=== PATIENT | female | born 1950 | race Caucasian/White ===

== ENCOUNTER 2025-01-30 14:07 | Inpatient (IN) | payer MEDICARE, OTHER ==
[~2025-01-30] VITALS: Ht 161.3 cm; Wt 80.0 kg
[2025-01-30 14:10] VITALS: PULSE 110; RESP 24; O2SAT 95
--- NOTE | 2025-01-30 14:18 | ED.PDOC ---
History of Present Illness HPI Comments This is a 75 year old female EUGENIEA presenting to the ED with chief complaint of generalized weakness. EMS reports patient has been being treated for a UTI for approximately a week before today she started to experience generalized weakness and fatigue. EMS relays that the patient's BP was initially in the 70s systolically before dropping to 50/32, giving 1.5L of NS IV and 0.3 of Epinephrine to improve her blood pressure. Patient states she has also been experiencing associated diarrhea for the past week. Patient believes she is allergic to the antibiotic she was prescribed for her UTI. Patient denies any nausea, vomiting, chest pain, SOB, dizziness, or syncope. Time Seen by MD: 14:12 Reviewed Notes: Nurses Notes, Waste Duster Notes, Medications, Allergies Allergies: Coded Allergies: Amlodipine (Verified Allergy, Unknown, 01/30/25) Doxycycline (Verified Allergy, Unknown, 01/30/25) Hydralazine (Verified Allergy, Unknown, 01/30/25) Lisinopril (Verified Allergy, Unknown, 01/30/25) Nebivolol (Verified Allergy, Unknown, 01/30/25) Information Source: Patient, Emergency Med Personnel Mode of Arrival: EMS Severity: Moderate Timing: Days Duration: Since onset Prehospital treatment: None Past Medical History PAST MEDICAL HISTORY: HTN, Thyroid, UTI'S Past Medical History (Other): Prediabetes, kidney issues Surgical History: Appendectomy, Cholecystectomy, Tonsillectomy Surgical History (Other): Cataract surgery, Bilateral knee replacement INVESTMENT BANKING ANALYST History: Denies all INVESTMENT BANKING ANALYST Hx Family History Family History: Reviewed,noncontributory to illness Social History Smoker: Non-Smoker Alcohol: Denies ETOH Use Drugs: Denies Drug Use Lives In: Home Constitutional: reports: weakness; denies: chills, diaphoresis, fatigue, fever, malaise, sweats, others EENTM: denies: blurred vision, double vision, ear bleeding, ear discharge, ear drainage, ear pain, ear ringing, eye pain, eye redness, hearing loss, mouth pain, mouth swelling, nasal discharge, nose bleeding, nose congestion, nose pain, photophobia, tearing, throat pain, throat swelling, voice changes, others Respiratory: denies: cough, hemoptysis, orthopnea, SOB at rest, shortness of breath, SOB with excertion, stridor, wheezing, others Cardiovascular: denies: chest pain, dizzy spells, diaphoresis, Dyspnea on exertion, edema, irregular heart beat, left arm pain, lightheadedness, palpitations, PND, syncope, others Gastrointestinal: denies: abdomen distended, abdominal pain, blood streaked bowels, constipated, diarrhea, dysphagia, difficulty swallowing, hematemesis, melena, nausea, poor appetite, poor fluid intake, rectal bleeding, rectal pain, vomiting, others Genitourinary: denies: abnormal vagina bleeding, burning, dyspareunia, dysuria, flank pain, frequency, hematuria, incontinence, pain, , vagina discharge, urgency, others Neurological: denies: dizziness, fainting, headache, left sided numbness, left sided weakness, numbness, paresthesia, pre-existing deficit, right sided numbness, right sided weakness, seizure, speech problems, tingling, tremors, weakness, others Musculoskeletal: denies: back pain, gout, joint pain, joint swelling, muscle pain, muscle stiffness, neck pain, others Integumetry: denies: bruises, change in color, change in hair/nails, dryness, laceration, lesions, lumps, rash, wounds, others Allergic/Immunocompromised: denies: Difficulty Healing, Frequent Infections, Hives, Itching, others Hematologic/Lymphatic: denies: anemia, blood clots, easy bleeding, easy bruising, swollen glands, others Endocrine: denies: excessive hunger, excessive sweating, excessive thirst, excessive urination, flushing, intolerance to cold, intolerance to heat, unexplained weight gain, unexplained weight loss, others Psychiatric: denies: anxiety, bipolar disorder, depression, hopeless, panic disorder, schizophrenia, sleepless, suicidal, others All Other Systems: Reviewed and Negative Physical Exam General Appearance: Moderate Distress HEENT: Pale Conjuntivae (L), Pale Conjuntivae (R), Pharynx Normal, TMs Normal Neck: Full Range of Motion, Non-Tender, Normal, Normal Inspection Respiratory: Chest Non-Tender, Lungs Clear, No Accessory Muscle Use, No Respiratory Distress, Normal Breath Sounds Cardiovascular: No Edema, No JVD, No Murmur, No Gallop, Normal Peripheral Pulses, Regular Rate/Rhythm Breast Exam: Deferred Gastrointestinal: No Organomegaly, Non Tender, No Pulsatile Mass, Normal Bowel Sounds, Soft Genitalia: Deferred Pelvic: Deferred Rectal: Deferred Extremities: No calf tenderness, Normal capillary refill, No pedal edema Musculoskeletal : Apperance: Normal Neurologic: skill training program coordinator II-XII nml as Tested, Motor Weakness, Normal Affect, Normal Mood, No Sensory Deficits Cerebellar Function: Normal Reflexes: Normal Skin: Dry, Pallor, Warm Lymphatic: No Adenopathy Was a procedure done? Was a procedure done?: No EKG EKG : Pulse Rate (adult): 105 [place]: Normal Cardiac Rhythm: ST Block: None Hypertrophy: None ST: Normal Differential Dx Considerations may include: Sepsis, UTI, generalized weakness, electrolyte imbalance X-Ray, Labs, Meds, VS Vital Signs Date Time Temp Pulse Resp B/P (MAP) Pulse Ox O2 Delivery O2 Flow Rate FiO2 01/30/25 15:16 98 24 105/66 (79) 95 01/30/25 14:36 97.7 110 24 81/51 95 97.7 01/30/25 14:18 105 01/30/25 14:11 105 01/30/25 14:10 97.7 110 24 81/51 (61) 95 97.7 01/30/25 14:10 110 24 95 Nasal Cannula* 2 28 Lab Test 01/30/25 16:35 01/30/25 14:38 Range/Units Lactic Acid Level 1.2 2.4 *H 0.4-2.0 mmol/L White Blood Count 11.5 H 4.4-10.8 10^3/uL Red Blood Count 3.75 L 4.0-5.20 10^6/uL Hemoglobin 12.2 12.2-16.2 g/dL Hematocrit 37.5 36.0-46.0 % Mean Corpuscular Volume 100.1 H 80.0-100.0 fL Mean Corpuscular Hemoglobin 32.6 H 28.0-32.0 pg Mean Corpuscular Hemoglobin Concent 32.5 32.0-36.0 g/dL Red Cell Distribution Width 16.2 H 11.8-14.3 % Platelet Count 145 140-450 10^3/uL Mean Platelet Volume 8.9 6.9-10.8 fL Neutrophils (%) (Auto) 85.5 H 37.0-80.0 % Lymphocytes (%) (Auto) 5.2 L 10.0-50.0 % Monocytes (%) (Auto) 8.4 0.0-12.0 % Eosinophils (%) (Auto) 0.4 0.0-7.0 % Basophils (%) (Auto) 0.5 0.0-2.0 % Neutrophils # (Auto) 9.8 H 1.6-8.6 10 ^3/uL Lymphocytes # (Auto) 0.6 0.4-5.4 10 ^3/uL Monocytes # (Auto) 1.0 0-1.3 10 ^3/uL Eosinophils # (Auto) 0 0-0.8 10 ^3/uL Basophils # (Auto) 0.1 0-0.2 10 ^3/uL Nucleated Red Blood Cells 0.0 % Sodium Level 140 136-145 mmol/L Potassium Level 4.4 3.5-5.1 mmol/L Chloride Level 109 H 98-107 mmol/L Carbon Dioxide Level 18 L 20-31 mmol/L Anion Gap 13 5-15 Blood Urea Nitrogen 25 H 9-23 mg/dL Creatinine 1.99 H 0.550-1.02 mg/dL Glomerular Filtration Rate Calc 25 >90 mL/min BUN/Creatinine Ratio 12.6 10.0-20.0 Serum Glucose 138 H 74-106 mg/dL Calcium Level 9.0 8.7-10.4 mg/dL Current Medications Medications (Trade) Dose Ordered Sig/David Route Start Time Stop Time Status Last Admin Sodium Chloride 1,000 ml @ 150 mls/hr Q6H40M ONCE IV 01/30/25 14:15 01/30/25 17:49 DC 01/30/25 14:59 Vancomycin HCl 250 ml @ 250 mls/hr ONCE ONCE IV 01/30/25 14:15 01/30/25 15:14 DC 01/30/25 16:00 Levofloxacin/ Dextrose 100 ml @ 100 mls/hr ONCE ONCE IV 01/30/25 14:15 01/30/25 15:14 DC 01/30/25 14:59 Sodium Chloride 1,000 ml @ 100 mls/hr Q10H ONCE IV 01/30/25 17:30 01/31/25 03:29 01/30/25 17:49 Ondansetron HCl (Zofran) 4 mg Q4HP PRN IV 01/30/25 17:30 01/30/25 18:54 Chest XR indicates: No acute cardiopulmonary disease. IV Hep-Lock was established The patient had an IV Hep-Lock established and was then given normal saline per sepsis protocol Following blood cultures, the patient was given vancomycin and Levaquin IV piggyback For the nausea, the patient was given Zofran 4 mg IV push The BUN is 25 and the creatinine is 1.99 The patient's lactic acid level initially was 2.4 and eventually went down at 1.2 The CBC shows an elevated white blood cell count of 11.5 The rest of the CBC is within normal limits For findings are consistent with sepsis. The patient is undergoing sepsis protocol. The patient will be admitted to the ICU. Images Reviewed?: Images reviewed and evaluated by me Time of 1ST Reevaluation: 19:04 Reevaluation 1ST: Unchanged Patient Education/Counseling: Diagnosis, Treatment, Prognosis Family Education/Counseling: No Family Present SEPSIS Sepsis Screen Physician Orders Chest Portable (01/30/25 14:11) Urinalysis (01/30/25 14:11) Heplock Iv (01/30/25 14:11) Solid Waste Facility Operator (01/30/25 14:11) Blood Pressure (01/30/25 14:11) Pulse Oximetry (01/30/25 14:11) Electrocardigram (01/30/25 14:11) Blood Culture (01/30/25 14:11) Norepinephrine 8 Mg/250ml Kit (Levophed) (01/30/25 15:00) Vital Signs Date Time Temp Pulse Resp B/P (MAP) Pulse Ox O2 Delivery O2 Flow Rate FiO2 01/30/25 15:16 98 24 105/66 (79) 95 01/30/25 14:36 97.7 110 24 81/51 95 97.7 01/30/25 14:18 105 01/30/25 14:11 105 01/30/25 14:10 97.7 110 24 81/51 (61) 95 97.7 01/30/25 14:10 110 24 95 Nasal Cannula* 2 28 Laboratory Tests Test 01/30/25 14:38 01/30/25 16:35 Lactic Acid Level 2.4 mmol/L (0.4-2.0) *H 1.2 mmol/L (0.4-2.0) White Blood Count 11.5 10^3/uL (4.4-10.8) H Medications Medications Dose Ordered Sig/David Route Start Time Stop Time Status Last Admin Dose Admin Levofloxacin/ Dextrose 100 ml @ 100 mls/hr ONCE ONCE IV 01/30/25 14:15 01/30/25 15:14 DC 01/30/25 14:59 Ondansetron HCl 4 mg Q4HP PRN IV 01/30/25 17:30 01/30/25 18:54 Sodium Chloride 1,000 ml @ 100 mls/hr Q10H ONCE IV 01/30/25 17:30 01/31/25 03:29 01/30/25 17:49 Sodium Chloride 1,000 ml @ 150 mls/hr Q6H40M ONCE IV 01/30/25 14:15 01/30/25 17:49 DC 01/30/25 14:59 Vancomycin HCl 250 ml @ 250 mls/hr ONCE ONCE IV 01/30/25 14:15 01/30/25 15:14 DC 01/30/25 16:00 Departure 1 Departure Time of Disposition: 19:06 Impression: Primary Impression: Sepsis secondary to UTI Additional Impression: Hypotension Qualified Codes: I95.9 - Hypotension, unspecified Disposition: ADMITTED INPATIENT Admit to: ICU Condition: Critical Discharged With: Self Critical Care Note Critical Care Time?: Yes (45 min-critical care time only) Stability Stability form required: Yes Unstable for transfer: ICU, CCU, PCU, EDA (Intensive VS monitoring), ED Physician Assesment (Clinical assesment) Heart Score Heart Score: Heart Score Response (Comments) Value History N/A 0 EKG N/A 0 Age N/A 0 Risk Factors N/A 0 Troponin N/A 0 Total 0 I personally scribed for HOMER CHACON MD ([email or web address]) on 01/30/25 at 14:18. Electronically submitted by Salinas Grey ([email or web address]). I personally scribed for HOMER CHACON MD ([email or web address]) on 01/30/25 at 14:47. Electronically submitted by Salinas Grey ([email or web address]). HOMER CHACON MD Jan 30, 2025 14:18
--- NOTE | 2025-01-30 14:41 | DVH ---
EXAM: XY CHEST PORTABLE Indication: weakness Technique: Single frontal view of the chest was obtained Comparison: None FINDINGS: Lines and Tubes: None Lungs: No focal consolidation. Pleura: No effusion. No pneumothorax. Cardiomediastinal contours: Unremarkable Bones: No acute osseous abnormality. IMPRESSION: No acute cardiopulmonary disease.
[2025-01-30 14:59] LABS: Hematocrit 37.5 % (36.0-46.0); Hemoglobin 12.2 g/dL (12.2-16.2); Mean Corpuscular Hemoglobin 32.6 pg (28.0-32.0); Mean Corpuscular Volume 100.1 fL (80.0-100.0); Nucleated Red Blood Cells % 0.0 %
[2025-01-30] MEDS: SODIUM CHLORIDE 0.9% 1,000 ML IV ONE ×2 (14:59→17:49)
[2025-01-30 15:15] LABS: Potassium 4.4 mmol/L (3.5-5.1); Sodium 140 mmol/L (136-145)
[2025-01-30 15:16] LABS: Anion Gap 13 (5-15); Calcium 9.0 mg/dL (8.7-10.4)
[2025-01-30 15:20] LABS: Carbon Dioxide 18 mmol/L (20-31); Chloride 109 mmol/L (98-107)
[2025-01-30 15:21] LABS: BUN/Creatinine Ratio 12.6 (10.0-20.0)
[2025-01-30 15:26] LABS: Blood Urea Nitrogen 25 mg/dL (9-23); Glucose 138 mg/dL (74-106)
[2025-01-30 15:35] LABS: Lactic Acid w/Reflex 2.4 mmol/L (0.4-2.0)
[2025-01-30] MEDS: NOREPINEPHRINE 8 MG/250ML KIT 250 ML IV SCH (15:54)
[2025-01-30] MEDS: VANCOMYCIN 1GM/250ML KIT 250 ML IV ONE (16:00)
[2025-01-30] MEDS ORDERED: NITROGLYCERIN 0.4 MG SL TAB SL PRN (17:30)
[2025-01-30] MEDS ORDERED: ACETAMINOPHEN 325 MG TAB PO PRN (17:30)
[2025-01-30] MEDS ORDERED: VANCOMYCIN PER PHARMACY 0 MG IV SCH (17:30)
[2025-01-30] MEDS ORDERED: MORPHINE SULFATE 4 MG/ML SYR/VIAL IV PRN (18:00)
[2025-01-30] MEDS: VANCOMYCIN 1.25GM/250ML 250 ML IV ONE (18:26)
[2025-01-30] MEDS: ONDANSETRON HCL 4 MG/2 ML VIAL IV PRN (18:54)
--- NOTE | 2025-01-30 19:29 | DVHHP2 ---
History of Present Illness Reason for Visit: Generalized weakness History of Present Illness 75-year-old female presented for evaluation of generalized weakness. Patient reports being treated for a urinary tract infection for the past one month. Reports noticing cloudy urine. Denies dysuria or hematuria. Her blood pressure was in the 70s on arrival to the emergency department. Currently denies chest pain or shortness for breath. No other acute complaints. Past Medical History Thyroid, hypertension, UTI Past Surgical History Cholecystectomy, tonsillectomy, appendectomy, knee replacement Family History Noncontributory Smoke: No ALCOHOL: none Drugs: None Lives: with Family Review of Systems Review of Systems Review of systems are currently negative otherwise addressed in HPI. Allergies: Coded Allergies: Amlodipine (Verified Allergy, Unknown, 01/30/25) Doxycycline (Verified Allergy, Unknown, 01/30/25) Hydralazine (Verified Allergy, Unknown, 01/30/25) Lisinopril (Verified Allergy, Unknown, 01/30/25) Nebivolol (Verified Allergy, Unknown, 01/30/25) Medications Current Medications Medications Dose Ordered Sig/David Route Start Time Stop Time Status Last Admin Dose Admin Norepinephrine Bitartrate 250 ml @ 3.75 mls/hr Q24H IV 01/30/25 15:00 Piperacillin Sod/ Tazobactam Sod 100 ml @ 25 mls/hr Q8HR IV 01/30/25 22:00 Vancomycin HCl 0 ml @ 0 mls/hr UD IV 01/30/25 17:30 Pantoprazole Sodium 40 mg DAILY IV 01/31/25 10:00 Ondansetron HCl 4 mg Q4HP PRN IV 01/30/25 17:30 01/30/25 18:54 4 MG Acetaminophen 650 mg Q6HP PRN PO 01/30/25 17:30 Nitroglycerin 0.4 mg Q5MINP PRN SL 01/30/25 17:30 Morphine Sulfate 2 mg Q30M PRN IV 01/30/25 18:00 Exam Vital Signs Vital Signs Date Time Temp Pulse Resp B/P (MAP) Pulse Ox O2 Delivery O2 Flow Rate FiO2 01/30/25 15:16 98 24 105/66 (79) 95 01/30/25 14:36 97.7 97.7 01/30/25 14:10 Nasal Cannula* 2 28 Exam Gen: 75-year-old female in mild distress Skin: Warm, dry, normal color and texture, no rash. HEENT: Normocephalic atraumatic, mucous membranes moist and pink. Neck: Cervical and supraclavicular nodes normal without enlargement, trachea is midline, thyroid gland is normal without masses. Pulmonary: Clear to auscultation and percussion bilaterally. Cardiac: Regular rate and rhythm. No murmur Abdomen: Soft, nontender, nondistended, bowel sounds present all 4 quadrants, no guarding, no rigidity, no organomegaly. Extremities: No cyanosis, clubbing, no edema Neuro: Cranial nerves II through XII grossly intact, normal affect and speech, no focal motor deficits. Labs/Xrays ORDERING PHYSICIAN: HOMER CHACON MD PROCEDURE(s): CXRP - CHEST PORTABLE REASON: weakness ORDER NUMBER(s): [id number], ACCESSION NUMBER(s): [id number] EXAM: XY CHEST PORTABLE Indication: weakness Technique: Single frontal view of the chest was obtained Comparison: None FINDINGS: Lines and Tubes: None Lungs: No focal consolidation. Pleura: No effusion. No pneumothorax. Cardiomediastinal contours: Unremarkable Bones: No acute osseous abnormality. IMPRESSION: No acute cardiopulmonary disease. ATED BY: RUBIN BELTRAN MD DICTATED DATE/TIME: 01/30/25 1438 Labs Test 01/30/25 16:35 01/30/25 14:38 Range/Units Lactic Acid Level 1.2 0.4-2.0 mmol/L White Blood Count 11.5 H 4.4-10.8 10^3/uL Red Blood Count 3.75 L 4.0-5.20 10^6/uL Hemoglobin 12.2 12.2-16.2 g/dL Hematocrit 37.5 36.0-46.0 % Mean Corpuscular Volume 100.1 H 80.0-100.0 fL Mean Corpuscular Hemoglobin 32.6 H 28.0-32.0 pg Mean Corpuscular Hemoglobin Concent 32.5 32.0-36.0 g/dL Red Cell Distribution Width 16.2 H 11.8-14.3 % Platelet Count 145 140-450 10^3/uL Mean Platelet Volume 8.9 6.9-10.8 fL Neutrophils (%) (Auto) 85.5 H 37.0-80.0 % Lymphocytes (%) (Auto) 5.2 L 10.0-50.0 % Monocytes (%) (Auto) 8.4 0.0-12.0 % Eosinophils (%) (Auto) 0.4 0.0-7.0 % Basophils (%) (Auto) 0.5 0.0-2.0 % Neutrophils # (Auto) 9.8 H 1.6-8.6 10 ^3/uL Lymphocytes # (Auto) 0.6 0.4-5.4 10 ^3/uL Monocytes # (Auto) 1.0 0-1.3 10 ^3/uL Eosinophils # (Auto) 0 0-0.8 10 ^3/uL Basophils # (Auto) 0.1 0-0.2 10 ^3/uL Nucleated Red Blood Cells 0.0 % Sodium Level 140 136-145 mmol/L Potassium Level 4.4 3.5-5.1 mmol/L Chloride Level 109 H 98-107 mmol/L Carbon Dioxide Level 18 L 20-31 mmol/L Anion Gap 13 5-15 Blood Urea Nitrogen 25 H 9-23 mg/dL Creatinine 1.99 H 0.550-1.02 mg/dL Glomerular Filtration Rate Calc 25 >90 mL/min BUN/Creatinine Ratio 12.6 10.0-20.0 Serum Glucose 138 H 74-106 mg/dL Calcium Level 9.0 8.7-10.4 mg/dL SEPSIS Sepsis Screen Date sepsis recognized/suspect: Jan 30, 2025 Time Sepsis recognized/suspect: 1441 Recent Procedure: No On Antibiotic Therapy: No Respiratory Rate >20: No Heart Rate >90: No Temp<36 C (96.8 F) or >38.3 C: No SBP <90 or MAP <65 mmHG: No New Acute Mental Status Change: No Is the patient on CPAP, BIPAP,: No Physician Orders Chest Portable (01/30/25 14:11) Urinalysis (01/30/25 14:11) Heplock Iv (01/30/25 14:11) Program Production Specialist (01/30/25 14:11) Blood Pressure (01/30/25 14:11) Pulse Oximetry (01/30/25 14:11) Electrocardigram (01/30/25 14:11) Blood Culture (01/30/25 14:11) Norepinephrine 8 Mg/250ml Kit (Levophed) (01/30/25 15:00) Piperacillin-Tazob 3.375gm (Zosyn 3.375g (01/30/25 22:00) Vancomycin Per Pharmacy (01/30/25 17:30) Sodium Chloride 0.9% (01/30/25 17:30) Pantoprazole (Protonix) (01/31/25 10:00) Admit (01/30/25 17:30) Ondansetron Hcl (Zofran) (01/30/25 17:30) Complete Blood Count (01/31/25 04:00) Comprehensive Metabolic Panel (01/31/25 04:00) Cardiac Diet-2gna,Lofat,Lochol (01/30/25 Dinner) Echo 2d Mode Cardiac Dop (01/30/25 17:30) Condition: Unstable (01/30/25 17:30) Acetaminophen Tablet (Tylenol Tablet) (01/30/25 17:30) Bedrest With Bathroom Privileg (01/30/25 17:30) Nitroglycerin Sublingual (Ntrostat Subli (01/30/25 17:30) Stat Ekg For Chest Pain (01/30/25 17:30) Notify Md Of Changes From Base (01/30/25 17:30) Fermentation Operator For 24 Hours (01/30/25 17:30) Emergency Dysrhythmia Protocol (01/30/25 17:30) Rhythm Strips Once Every Shift (01/30/25 17:30) Oxygen By Nasal Cannula (01/30/25 17:30) Morphine Sulfate Injection (01/30/25 18:00) Vancomycin,Random (01/31/25 04:00) Admit (01/30/25 19:20) Transfer Orders (01/30/25 19:20) Vital Signs Date Time Temp Pulse Resp B/P (MAP) Pulse Ox O2 Delivery O2 Flow Rate FiO2 01/30/25 15:16 98 24 105/66 (79) 95 01/30/25 14:36 97.7 110 24 81/51 95 97.7 01/30/25 14:18 105 01/30/25 14:11 105 01/30/25 14:10 97.7 110 24 81/51 (61) 95 97.7 01/30/25 14:10 110 24 95 Nasal Cannula* 2 28 Laboratory Tests Test 01/30/25 14:38 01/30/25 16:35 Lactic Acid Level 2.4 mmol/L (0.4-2.0) *H 1.2 mmol/L (0.4-2.0) White Blood Count 11.5 10^3/uL (4.4-10.8) H Medications Medications Dose Ordered Sig/David Route Start Time Stop Time Status Last Admin Dose Admin Levofloxacin/ Dextrose 100 ml @ 100 mls/hr ONCE ONCE IV 01/30/25 14:15 01/30/25 15:14 DC 01/30/25 14:59 100 MLS/HR Ondansetron HCl 4 mg Q4HP PRN IV 01/30/25 17:30 01/30/25 18:54 4 MG Sodium Chloride 1,000 ml @ 100 mls/hr Q10H ONCE IV 01/30/25 17:30 01/31/25 03:29 01/30/25 17:49 100 MLS/HR Sodium Chloride 1,000 ml @ 150 mls/hr Q6H40M ONCE IV 01/30/25 14:15 01/30/25 17:49 DC 01/30/25 14:59 150 MLS/HR Vancomycin HCl 250 ml @ 250 mls/hr ONCE ONCE IV 01/30/25 14:15 01/30/25 15:14 DC 01/30/25 16:00 250 MLS/HR Assessment/Plan Assessment/Plan Assessment Sepsis Possible urinary tract infection Hypotension Plan Admit the patient to telemetry to the hospitalist Abdullahi Maintenance IV fluids Urine bacterial culture pending UA pending Continue treatment per orders. Plan discussed with: Patient My Orders Orders - CHARI WOLF AGACNP Procedure Category Date Status Time Piperacillin-Tazob PHA 01/30/25 In Process 3.375gm (Zosyn 3.375g 22:00 Vancomycin Per PHA 01/30/25 In Process Pharmacy 17:30 Sodium Chloride 0.9% PHA 01/30/25 In Process 17:30 Pantoprazole PHA 01/31/25 In Process (Protonix) 10:00 Admit ADMIT 01/30/25 Transmitted 17:30 Ondansetron Hcl PHA 01/30/25 In Process (Zofran) 17:30 Complete Blood Count LAB 01/31/25 Verified 04:00 Comprehensive LAB 01/31/25 Verified Metabolic Panel 04:00 Cardiac DIET 01/30/25 Transmitted Diet-2gna,Lofat,Lochol Dinner Echo 2d Mode Cardiac US 01/30/25 Logged DOP 17:30 Condition: Unstable MELONIE 01/30/25 In Process 17:30 Acetaminophen Tablet PHA 01/30/25 In Process (Tylenol Tablet) 17:30 Bedrest With Bathroom MELONIE 01/30/25 In Process Privileg 17:30 Nitroglycerin PHA 01/30/25 In Process Sublingual (Ntrostat 17:30 Stat Ekg For Chest MELONIE 01/30/25 In Process Pain 17:30 Notify Of Changes [facility] 01/30/25 In Process From Base 17:30 Fermentation Operator For [facility] 01/30/25 In Process 24 Hours 17:30 Emergency Dysrhythmia [facility] 01/30/25 In Process Protocol 17:30 Rhythm Strips Once [facility] 01/30/25 In Process Every Shift 17:30 Oxygen By Nasal RT 01/30/25 Transmitted Cannula 17:30 Morphine Sulfate PHA 01/30/25 In Process Injection 18:00 Vancomycin,Random LAB 01/31/25 Verified 04:00 Admit ADMIT 01/30/25 Transmitted 19:20 Transfer Orders XFER 01/30/25 Transmitted 19:20 Date of Service: Jan 30, 2025 Billing Provider: CHARI WOLF Common Visit Codes: [id number] INP/OBS CARE (HIGH) CHARI WOLF Jan 30, 2025 19:29
[2025-01-30 19:30] VITALS: PULSE 83; RESP 19; O2SAT 96
[2025-01-30] MEDS: HYDROcodone-ACET 5/325MG TAB PO PRN (21:39)
[2025-01-30] MEDS ORDERED: PIPERACILLIN-TAZOB 3.375GM 100 ML IV SCH (22:00)
[2025-01-31] VITALS (9 sets, daily range): BP systolic 111–140; BP diastolic 74–88; PULSE 74–91; RESP 16–19; TEMP 97.2–98.3; O2SAT 90–95
[2025-01-31] MEDS ORDERED: LEVO125T7 PO (03:47)
[2025-01-31] MEDS ORDERED: OMEP20TA PO (03:47)
[2025-01-31] MEDS ORDERED: TIZA4CAP PO (03:47)
[2025-01-31] MEDS ORDERED: NEBI5TAB10 PO (03:47)
[2025-01-31] MEDS ORDERED: HYDR-4798 PO (03:47)
[2025-01-31 06:51] LABS: Hematocrit 39.7 % (36.0-46.0); Hemoglobin 12.7 g/dL (12.2-16.2); Mean Corpuscular Hemoglobin 32.8 pg (28.0-32.0); Mean Corpuscular Volume 102.2 fL (80.0-100.0); Nucleated Red Blood Cells % 0.1 %
[2025-01-31 07:07] LABS: Alanine Aminotransferase 15 U/L (7-40); Albumin 3.2 g/dL (3.2-4.8); Alkaline Phosphatase 97 U/L (46-116); Anion Gap 15 (5-15); BUN/Creatinine Ratio 16.3 (10.0-20.0); Calcium 9.6 mg/dL (8.7-10.4); Glucose 92 mg/dL (74-106); Potassium 4.8 mmol/L (3.5-5.1); Sodium 139 mmol/L (136-145); Total Protein 6.3 g/dL (5.7-8.2)
[2025-01-31 07:14] LABS: Bilirubin, Total 1.2 mg/dL (0.2-1.0); Blood Urea Nitrogen 34 mg/dL (9-23); Carbon Dioxide 16 mmol/L (20-31); Chloride 108 mmol/L (98-107)
--- NOTE | 2025-01-31 07:57 | ECG ---
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
[2025-01-31] MEDS: PANTOPRAZOLE 40 MG/10 ML VIAL INJ IV SCH (11:21)
--- NOTE | 2025-01-31 12:55 | DVHPN2 ---
Reviewed: Care Plan, H&P, Labs, Medications, Previous Orders, Radiology Changes from previous H/P or p: No Changes Objective Vitals Vital Signs Date Time Temp Pulse Resp B/P (MAP) Pulse Ox O2 Delivery O2 Flow Rate FiO2 01/31/25 09:00 98.3 74 16 118/77 (91) 93 98.3 01/31/25 08:00 Nasal Cannula* 2 28 Intake/Output Intake and Output 01/31/25 06:59 Intake Total 0 ml Balance 0 ml Intake Oral 0 ml Medications Current Medications Medications Dose Ordered Sig/David Route Start Time Stop Time Status Last Admin Dose Admin Pantoprazole Sodium 40 mg DAILY IV 01/31/25 10:00 01/31/25 11:21 40 MG Ondansetron HCl 4 mg Q4HP PRN IV 01/30/25 17:30 01/30/25 18:54 4 MG Acetaminophen 650 mg Q6HP PRN PO 01/30/25 17:30 Nitroglycerin 0.4 mg Q5MINP PRN SL 01/30/25 17:30 Morphine Sulfate 2 mg Q30M PRN IV 01/30/25 18:00 Acetaminophen/ Hydrocodone Bitart 1 tab Q8HPRN PRN PO 01/30/25 20:45 01/31/25 05:47 1 TAB Levofloxacin 50 ml @ 50 mls/hr DAILY IV 01/31/25 10:00 01/31/25 11:21 50 MLS/HR Laboratory Results Laboratory Tests 01/31/25 05:39 Chemistry Test 01/30/25 14:38 01/31/25 05:39 Calcium Level 9.0 mg/dL (8.7-10.4) 9.6 mg/dL (8.7-10.4) Albumin 3.2 g/dL (3.2-4.8) Total Protein 6.3 g/dL (5.7-8.2) LFT Test 01/31/25 05:39 Alanine Aminotransferase (ALT) 15 U/L (7-40) Alkaline Phosphatase 97 U/L (46-116) Aspartate Amino Transferase (AST) 27 U/L (13-40) Total Bilirubin 1.2 mg/dL (0.2-1.0) H Labs and/or images reviewed: Labs reviewed by me, Image(s) reviewed by me Assessment/Plan Assessment/Plan Septic shock with hypotension altered mental status elevated white count secondary to urinary tract infection Acute urinary tract infection: Blood cultures urine cultures Rocephin Hypotension secondary to septic shock: IV fluids Hypertension: Hold blood pressure medication as the patient now has sepsis Hypothyroidism History of recurrent urinary tract infections Moderate malnutrition History of cholecystectomy appendectomy hysterectomy colectomy for colon cancer gastric ulcer surgery Vaginal prolapse under the treatment of rn clinical resource Time spent 70 minutes Advanced care planning time 20 minutes Patient is full code Daughter Hi [phone] at bedside Recently treated at [place] for sepsis to urinary tract infection discharged home on cefdinir and Keflex Time spent 70 minutes Advanced care planning time 20 minutes Patient is full code Plan discussed with: Patient My Orders Orders - SUHAIL CARLIN MD Procedure Category Date Status Time Urinalysis LAB 01/31/25 Transmitted 12:35 Communication Order ORDERS 01/31/25 Transmitted 12:36 Date of Service: Jan 31, 2025 Billing Provider: SUHAIL CARLIN MD Common Visit Codes: [id number] CARE 30-74 MIN SUHAIL CARLIN MD Jan 31, 2025 12:55
[2025-01-31] MEDS: D5W/SOD CHLO 0.9% 1,000 ML IV SCH (14:35)
[2025-01-31 19:10] LABS: Urine Protein, UAD Negative (Negative)
[2025-01-31] MEDS: HYDROcodone-ACET 10/325MG TAB PO PRN (21:59)
[2025-02-01] VITALS (8 sets, daily range): BP systolic 100–153; BP diastolic 64–89; PULSE 71–86; RESP 18–20; TEMP 97.4–98.4; O2SAT 94–96
--- NOTE | 2025-02-01 00:25 | DVHSR ---
APPROVED REPORT EXAM: Two-dimensional and M-mode echocardiogram with Doppler, color Doppler and Bubble Study. Blood Pressure: 111/76 mmHg INDICATION EF RISK FACTORS Height: 5'3", Weight: 151 DIMENSIONS LVDd4.2 (3.8-5.7cm)LA (2D)2.9 (1.9-4.0cm)Aortic Root3.4 (2.0-3.7cm) LVDs2.6 (2.5-4.0cm)LA (MM) (1.9-4.0cm)Aortic Cusp Exc1.9 (1.5-2.0cm) EF (%) 69.0 (55-70%)Rt. Atrium4.1 (1.9-4.0cm)Asc. Aorta3.1 cm IVSd0.9 (0.7-1.1cm)RV (D)5.2 (1.8-2.4cm) PWd0.4 (0.7-1.1cm) Mitral Valve MitralMitral Stenosis E wave0.29m/sMV Mean GR.mmHg A wave0.62m/sMV Peak GR.mmHg E/A ratio0.52D MVAcm2 DECEL [id number] 1/2 [place] Aortic Valve Aortic ValveAortic Stenosis V11.11m/Selene Mean GR.4mmHg V21.32m/Selene Peak GR.7mmHg LVOT Diameter2.2 (1.8-2.4cm)Doppler AVA3.19cm2 Pulmonic Valve V20.62m/s Tricuspid Valve TR Velocity2.25m/s [id number] ATRIA Injection of contrast documented an interatrial shunt. Conclusion RV AND RA DILATED HYPOKINETIC RV LV EF IS 65% NORMAL VALVES NO EFFUSION
--- NOTE | 2025-02-01 10:26 | DVHPN2 ---
Reviewed: Care Plan, H&P, Labs, Medications, Previous Orders, Radiology Changes from previous H/P or p: No Changes Objective Vitals Vital Signs Date Time Temp Pulse Resp B/P (MAP) Pulse Ox O2 Delivery O2 Flow Rate FiO2 02/01/25 08:55 97.4 71 20 136/89 (105) 96 97.4 01/31/25 20:00 Nasal Cannula* 2 28 Intake/Output Intake and Output 02/01/25 07:00 Intake Total 1420 ml Output Total 925 ml Balance 495 ml Intake Oral 1420 ml Output Urine Total 925 ml # Bowel Movements 1 Medications Current Medications Medications Dose Ordered Sig/David Route Start Time Stop Time Status Last Admin Dose Admin Pantoprazole Sodium 40 mg DAILY IV 01/31/25 10:00 02/01/25 09:15 40 MG Ondansetron HCl 4 mg Q4HP PRN IV 01/30/25 17:30 01/31/25 23:46 4 MG Acetaminophen 650 mg Q6HP PRN PO 01/30/25 17:30 Nitroglycerin 0.4 mg Q5MINP PRN SL 01/30/25 17:30 Morphine Sulfate 2 mg Q30M PRN IV 01/30/25 18:00 Acetaminophen/ Hydrocodone Bitart 1 tab Q8HPRN PRN PO 01/30/25 20:45 01/31/25 13:49 1 TAB Levofloxacin 50 ml @ 50 mls/hr DAILY IV 01/31/25 10:00 02/01/25 09:15 50 MLS/HR Dextrose/Sodium Chloride 1,000 ml @ 125 mls/hr Q8H IV 01/31/25 13:15 01/31/25 21:50 125 MLS/HR Acetaminophen/ Hydrocodone Bitart 1 tab Q6HP PRN PO 01/31/25 21:45 02/01/25 09:24 1 TAB Laboratory Results Laboratory Tests 01/31/25 05:39 Urinalysis Test 01/31/25 18:25 Urine Color Light-yellow (Yellow) Urine Clarity Clear (Clear) Urine pH 5.5 (5.0-9.0) Urine Specific [place] 1.016 (1.001-1.035) Urine Protein Negative (Negative) Urine Ketones Trace (Negative) Urine Blood Negative /uL (Negative) Urine Nitrite Negative (Negative) Urine Bilirubin Negative (Negative) Urine Urobilinogen Normal mg/dL (Negative) Urine Leukocyte Esterase Negative /uL (Negative) Urine RBC None seen /hpf (0 - 4) Urine Microscopic WBC 2 /HPF (0-5) Urine Squamous Epithelial Cells Few /hpf (<5) Urine Bacteria Few /hpf (None Seen) H Urine Glucose Normal mg/dL (Normal) Microbiology Microbiology Date/Time Source Procedure Growth Status 01/30/25 14:38 Blood Blood Culture - Preliminary NO GROWTH AFTER 24 HOURS OF INCUBATION. Resulted Labs and/or images reviewed: Labs reviewed by me, Image(s) reviewed by me Assessment/Plan Assessment/Plan Septic shock with hypotension altered mental status elevated white count secondary to urinary tract infection Acute urinary tract infection: Blood cultures urine cultures Rocephin Hypotension secondary to septic shock: IV fluids Hypertension: Hold blood pressure medication as the patient now has sepsis Hypothyroidism History of recurrent urinary tract infections Moderate malnutrition History of cholecystectomy appendectomy hysterectomy colectomy for colon cancer gastric ulcer surgery Vaginal 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9%) 13:15 Straight Cath Patient ORDERS 01/31/25 Transmitted 13:04 Date of Service: Feb 01, 2025 Billing Provider: SUHAIL CARLIN MD Common Visit Codes: [id number] INP/OBS CARE(HIGH) SUHAIL CARLIN MD Feb 01, 2025 10:26
[2025-02-01] MEDS ORDERED: HYDROcodone-ACET 10/325MG TAB PO SCH (12:00)
[2025-02-01] MEDS: HYDROcodone-ACET 10/325MG TAB PO SCH (16:30)
[2025-02-02] VITALS (7 sets, daily range): BP systolic 94–125; BP diastolic 51–87; PULSE 74–119; RESP 14–18; TEMP 97.9–98.1; O2SAT 90–100
--- NOTE | 2025-02-02 11:35 | DVHPN2 ---
Reviewed: Care Plan, H&P, Labs, Medications, Previous Orders, Radiology Changes from previous H/P or p: No Changes Objective Vitals Vital Signs Date Time Temp Pulse Resp B/P (MAP) Pulse Ox O2 Delivery O2 Flow Rate FiO2 02/02/25 09:30 98.1 100 14 94/55 (68) 93 98.1 02/01/25 20:00 Nasal Cannula* 2 28 Intake/Output Intake and Output 02/02/25 07:00 Intake Total 8566 ml Balance 8566 ml Intake Oral 1015 ml IV Total 7551 ml # Voids 3 # Bowel Movements 2 Medications Current Medications Medications Dose Ordered Sig/David Route Start Time Stop Time Status Last Admin Dose Admin Pantoprazole Sodium 40 mg DAILY IV 01/31/25 10:00 02/02/25 10:14 40 MG Ondansetron HCl 4 mg Q4HP PRN IV 01/30/25 17:30 01/31/25 23:46 4 MG Acetaminophen 650 mg Q6HP PRN PO 01/30/25 17:30 Nitroglycerin 0.4 mg Q5MINP PRN SL 01/30/25 17:30 Morphine Sulfate 2 mg Q30M PRN IV 01/30/25 18:00 Acetaminophen/ Hydrocodone Bitart 1 tab Q8HPRN PRN PO 01/30/25 20:45 02/02/25 03:32 1 TAB Levofloxacin 50 ml @ 50 mls/hr DAILY IV 01/31/25 10:00 02/02/25 10:14 50 MLS/HR Dextrose/Sodium Chloride 1,000 ml @ 125 mls/hr Q8H IV 01/31/25 13:15 02/02/25 05:15 125 MLS/HR Acetaminophen/ Hydrocodone Bitart 1 tab Q6H PO 02/01/25 15:30 02/02/25 10:14 1 TAB Laboratory Results Laboratory Tests 01/31/25 05:39 Urinalysis Test 01/31/25 18:25 Urine Color Light-yellow (Yellow) Urine Clarity Clear (Clear) Urine pH 5.5 (5.0-9.0) Urine Specific [place] 1.016 (1.001-1.035) Urine Protein Negative (Negative) Urine Ketones Trace (Negative) Urine Blood Negative /uL (Negative) Urine Nitrite Negative (Negative) Urine Bilirubin Negative (Negative) Urine Urobilinogen Normal mg/dL (Negative) Urine Leukocyte Esterase Negative /uL (Negative) Urine RBC None seen /hpf (0 - 4) Urine Microscopic WBC 2 /HPF (0-5) Urine Squamous Epithelial Cells Few /hpf (<5) Urine Bacteria Few /hpf (None Seen) H Urine Glucose Normal mg/dL (Normal) Microbiology Microbiology Date/Time Source Procedure Growth Status 01/31/25 18:25 Voided Urine Urine Culture - Preliminary Resulted 01/30/25 14:38 Blood Blood Culture - Preliminary NO GROWTH AFTER 48 HOURS OF INCUBATION. Resulted Labs and/or images reviewed: Labs reviewed by me, Image(s) reviewed by me Assessment/Plan Assessment/Plan Septic shock with hypotension altered mental status elevated white count secondary to urinary tract infection Acute urinary tract infection: Blood cultures negative, urine cultures negative, continue Rocephin Hypotension secondary to septic shock: IV fluids Hypertension: Hold blood pressure medication as the patient now has sepsis Hypothyroidism History of recurrent urinary tract infections Moderate malnutrition History of cholecystectomy appendectomy hysterectomy colectomy for colon cancer gastric ulcer surgery 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 Chronic pain: [place] 10 q.6 hours per patient request Time spent 50 minutes Advanced care planning time 20 minutes Patient is full code Daughter Gayatri [phone] at bedside Recently treated at [place] for sepsis secondary to urinary tract infection discharged home on cefdinir and Keflex Time spent 50 minutes Blood cultures negative Urine cultures pending JOSÉ MIGUEL lau at bedside Plan discussed with: Patient My Orders Orders - SUHAIL CARLIN MD Procedure Category Date Status Time Hydrocodone-Acet PHA 02/01/25 In Process 10/325mg Tab ([place] 15:30 Notify Provider NOTICE 02/02/25 Transmitted Malnutrition 11:13 Nutritional NOURISH 02/02/25 Transmitted Supplements 11:13 Dietary NOTICE 02/02/25 Transmitted Recommendations 11:13 Date of Service: Feb 02, 2025 Billing Provider: SUHAIL CARLIN MD Common Visit Codes: [id number] INP/OBS CARE(HIGH) SUHAIL CARLIN MD Feb 02, 2025 11:35
--- NOTE | 2025-02-02 13:16 | DVH ---
CHEST RADIOGRAPH Indication: Cough, shortness of breath Technique: Single frontal view of the chest was obtained Comparison: XY CHEST PORTABLE on DOS: 01/30/25 FINDINGS: Lines and Tubes: None Lungs: There is Right basilar airspace disease. The left lung is clear. Pleura: No effusion. No pneumothorax. Cardiomediastinal contours: Cardiomegaly. Bones: No acute osseous abnormality. There is a neurostimulator overlying thoracic spine. IMPRESSION: 1. Right basilar airspace disease may represent pneumonia.
[2025-02-02] MEDS: HYDROcodone-ACET 10/325MG TAB PO SCH (23:16)
[2025-02-03] VITALS (19 sets, daily range): BP systolic 83–113; BP diastolic 48–66; PULSE 60–151; RESP 17–20; TEMP 97.5–98.4; O2SAT 90–96
[2025-02-03 09:21] LABS: COVID19 ANTIGEN SOFIA FIA NEGATIVE (NEGATIVE)
--- NOTE | 2025-02-03 10:53 | DVHPN2 ---
Reviewed: Care Plan, H&P, Labs, Medications, Previous Orders, Radiology Changes from previous H/P or p: No Changes Objective Vitals Vital Signs Date Time Temp Pulse Resp B/P (MAP) Pulse Ox O2 Delivery O2 Flow Rate FiO2 02/03/25 09:00 97.9 88 17 113/55 (74) 90 97.9 02/02/25 20:00 Nasal Cannula* 2 28 Intake/Output Intake and Output 02/03/25 07:00 Intake Total 2125 ml Balance 2125 ml Intake Oral 1200 ml IV Total 925 ml # Voids 5 # Bowel Movements 1 Medications Current Medications Medications Dose Ordered Sig/David Route Start Time Stop Time Status Last Admin Dose Admin Pantoprazole Sodium 40 mg DAILY IV 01/31/25 10:00 02/02/25 10:14 40 MG Ondansetron HCl 4 mg Q4HP PRN IV 01/30/25 17:30 01/31/25 23:46 4 MG Acetaminophen 650 mg Q6HP PRN PO 01/30/25 17:30 Nitroglycerin 0.4 mg Q5MINP PRN SL 01/30/25 17:30 Morphine Sulfate 2 mg Q30M PRN IV 01/30/25 18:00 Acetaminophen/ Hydrocodone Bitart 1 tab Q8HPRN PRN PO 01/30/25 20:45 02/02/25 03:32 1 TAB Levofloxacin 50 ml @ 50 mls/hr DAILY IV 01/31/25 10:00 02/02/25 10:14 50 MLS/HR Dextrose/Sodium Chloride 1,000 ml @ 125 mls/hr Q8H IV 01/31/25 13:15 02/03/25 02:06 125 MLS/HR Acetaminophen/ Hydrocodone Bitart 1 tab Q6HR PO 02/03/25 00:00 02/03/25 05:50 1 TAB Laboratory Results Laboratory Tests 01/31/25 05:39 Urinalysis Test 01/31/25 18:25 Urine Color Light-yellow (Yellow) Urine Clarity Clear (Clear) Urine pH 5.5 (5.0-9.0) Urine Specific [place] 1.016 (1.001-1.035) Urine Protein Negative (Negative) Urine Ketones Trace (Negative) Urine Blood Negative /uL (Negative) Urine Nitrite Negative (Negative) Urine Bilirubin Negative (Negative) Urine Urobilinogen Normal mg/dL (Negative) Urine Leukocyte Esterase Negative /uL (Negative) Urine RBC None seen /hpf (0 - 4) Urine Microscopic WBC 2 /HPF (0-5) Urine Squamous Epithelial Cells Few /hpf (<5) Urine Bacteria Few /hpf (None Seen) H Urine Glucose Normal mg/dL (Normal) Microbiology Microbiology Date/Time Source Procedure Growth Status 01/31/25 18:25 Voided Urine Urine Culture - Preliminary Resulted 01/30/25 14:38 Blood Blood Culture - Preliminary NO GROWTH AFTER 72 HOURS OF INCUBATION. Resulted Labs and/or images reviewed: Labs reviewed by me, Image(s) reviewed by me Assessment/Plan Assessment/Plan Septic shock with hypotension altered mental status elevated white count secondary to urinary tract infection Acute urinary tract infection: Blood cultures negative, urine cultures negative, continue Rocephin Hypotension secondary to septic shock: IV fluids Hypertension: Hold blood pressure medication as the patient now has sepsis Hypothyroidism History of recurrent urinary tract infections Moderate malnutrition History of cholecystectomy appendectomy hysterectomy colectomy for colon cancer gastric ulcer surgery Vaginal prolapse under the treatment of specialist physicians Chronic pain: [place] 10 q.6 hours per patient request Right lower lobe pneumonia: Add azithromycin to Rocephin Time spent 50 minutes Advanced care planning time 20 minutes Patient is full code Daughter Gayatri [phone] at bedside Recently treated at [place] for sepsis secondary to urinary tract infection discharged home on cefdinir and Keflex JOSÉ MIGUEL Concepcion at bedside Plan discussed with: Patient My Orders Orders - SUHAIL CARLIN MD Procedure Category Date Status Time Notify Provider NOTICE 02/02/25 Transmitted Malnutrition 11:13 Nutritional NOURISH 02/02/25 Transmitted Supplements 11:13 Dietary NOTICE 02/02/25 Transmitted Recommendations 11:13 Chest Xray 1 View XY 02/02/25 Resulted 11:33 Hydrocodone-Acet PHA 02/03/25 In Process 10/325mg Tab ([place] 00:00 Date of Service: Feb 03, 2025 Billing Provider: SUHAIL CARLIN MD Common Visit Codes: [id number] INP/OBS CARE(HIGH) SUHAIL CARLIN MD Feb 03, 2025 10:53
[2025-02-03] MEDS ORDERED: LEVO500T91 PO (11:15)
[2025-02-03] MEDS ORDERED: METR-344 PO (11:15)
[2025-02-03] MEDS ORDERED: ALBUTEROL SULF 2.5 MG/0.5ML(0.5%) NEB SOLN NEB PRN (11:15)
[2025-02-03] MEDS ORDERED: PANT40T PO (11:16)
--- NOTE | 2025-02-03 11:40 | DVHINCON2 ---
Date of service: Feb 03, 2025 History of Present Illness 75 yo F admitteded for PNA now found to have afib. 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 Past Medical History reviewedd Family History: Arthritis FHx: rheumatoid arthritis G8 MOTHER FHx: stroke G8 FATHER Allergies: Coded Allergies: Amlodipine (Verified Allergy, Unknown, 01/30/25) Doxycycline (Verified Allergy, Unknown, 01/30/25) Hydralazine (Verified Allergy, Unknown, 01/30/25) Lisinopril (Verified Allergy, Unknown, 01/30/25) Nebivolol (Verified Adverse Reaction, Mild, 01/31/25) PATIENT CAN NOT TOLERATE HIGHER DOSES OF THIS MEDICATION Home Meds Reported Medications Hydrocodone-Acetaminophen (Hydrocodone Bitartrate/AC 10-325 mg) 1 Tab Tab, 1 TAB PO Q4HPRN, TAB 01/31/25 Omeprazole (Gnp Omeprazole) 20 Mg Tab, 40 MG PO BID, TAB 01/31/25 Tizanidine Hydrochloride (Zanaflex) 4 Mg Cap, 2 MG PO QPM, CAP 01/31/25 Nebivolol Hcl (Bystolic) 5 Mg Tab, 2.5 MG PO DAILY, TAB 01/31/25 Levothyroxine Sodium (Levothyroxine Sodium) 125 Mcg Tab, 1 TAB PO DAILY, #30 TAB 5 Refills 01/31/25 Current Medications Current Medications Medications (Trade) Dose Ordered Sig/David Route PRN Reason Start Time Stop Time Status Last Admin Acetaminophen/ Hydrocodone Bitart ([place] 10/325MG Tab) 1 tab Q6HR PO 02/03/25 00:00 02/03/25 11:32 Albuterol (Ventolin Medneb) 2.5 mg Q4HPRN PRN NEB SHORTNESS OF BREATH 02/03/25 11:15 UNV Review of Systems 10 pt ros otherwise negative Vital Signs Vital Signs Date Time Temp Pulse Resp B/P (MAP) Pulse Ox O2 Delivery O2 Flow Rate FiO2 02/03/25 09:00 97.9 88 17 113/55 (74) 90 97.9 02/02/25 20:00 Nasal Cannula* 2 28 Physical Exam nad s1 s2 irregular ctab soft nt/nd no edema Labs/Diagnostic Data Labs Test 02/03/25 08:41 01/31/25 18:25 01/31/25 05:39 01/30/25 16:35 Range/Units Influenza Type A Antigen Negative Negative Influenza Type B Antigen Negative Negative SARS-CoV-2 Antigen (Rapid) Negative NEGATIVE Urine Color Light-yellow Yellow Urine Clarity Clear Clear Urine pH 5.5 5.0-9.0 Urine Specific [place] 1.016 1.001-1.035 Urine Protein Negative Negative Urine Ketones Trace Negative Urine Blood Negative Negative /uL Urine Nitrite Negative Negative Urine Bilirubin Negative Negative Urine Urobilinogen Normal Negative mg/dL Urine Leukocyte Esterase Negative Negative /uL Urine RBC None seen 0 - 4 /hpf Urine Microscopic WBC 2 0-5 /HPF Urine Squamous Epithelial Cells Few <5 /hpf Urine Bacteria Few H None Seen /hpf Urine Glucose Normal Normal mg/dL White Blood Count 13.7 H 4.4-10.8 10^3/uL Red Blood Count 3.88 L 4.0-5.20 10^6/uL Hemoglobin 12.7 12.2-16.2 g/dL Hematocrit 39.7 36.0-46.0 % Mean Corpuscular Volume 102.2 H 80.0-100.0 fL Mean Corpuscular Hemoglobin 32.8 H 28.0-32.0 pg Mean Corpuscular Hemoglobin Concent 32.1 32.0-36.0 g/dL Red Cell Distribution Width 16.6 H 11.8-14.3 % Platelet Count 155 140-450 10^3/uL Mean Platelet Volume 9.3 6.9-10.8 fL Neutrophils (%) (Auto) 79.8 37.0-80.0 % Lymphocytes (%) (Auto) 8.9 L 10.0-50.0 % Monocytes (%) (Auto) 10.9 0.0-12.0 % Eosinophils (%) (Auto) 0.2 0.0-7.0 % Basophils (%) (Auto) 0.2 0.0-2.0 % Neutrophils # (Auto) 10.9 H 1.6-8.6 10 ^3/uL Lymphocytes # (Auto) 1.2 0.4-5.4 10 ^3/uL Monocytes # (Auto) 1.5 H 0-1.3 10 ^3/uL Eosinophils # (Auto) 0 0-0.8 10 ^3/uL Basophils # (Auto) 0 0-0.2 10 ^3/uL Nucleated Red Blood Cells 0.1 % Sodium Level 139 136-145 mmol/L Potassium Level 4.8 3.5-5.1 mmol/L Chloride Level 108 H 98-107 mmol/L Carbon Dioxide Level 16 L 20-31 mmol/L Anion Gap 15 5-15 Blood Urea Nitrogen 34 H 9-23 mg/dL Creatinine 2.09 H 0.550-1.02 mg/dL Glomerular Filtration Rate Calc 24 >90 mL/min BUN/Creatinine Ratio 16.3 10.0-20.0 Serum Glucose 92 74-106 mg/dL Calcium Level 9.6 8.7-10.4 mg/dL Total Bilirubin 1.2 H 0.2-1.0 mg/dL Aspartate Amino Transferase (AST) 27 13-40 U/L Alanine Aminotransferase (ALT) 15 7-40 U/L Alkaline Phosphatase 97 46-116 U/L Total Protein 6.3 5.7-8.2 g/dL Albumin 3.2 3.2-4.8 g/dL Lactic Acid Level 1.2 0.4-2.0 mmol/L Microbiology Date/Time Source Procedure Growth Status 01/31/25 18:25 Voided Urine Urine Culture - Preliminary Resulted 01/30/25 14:38 Blood Blood Culture - Preliminary NO GROWTH AFTER 72 HOURS OF INCUBATION. Resulted Assessment atrial fib---new onset, echo shows RV dysfunction and enlargement, start an ticoag, amio , digoxin 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
[2025-02-03] MEDS: METOPROLOL SUCCINATE XL 50 MG TAB PO SCH (12:35)
[2025-02-03] MEDS: DIGOXIN (250MCG/ML) 2 ML AMPULE IV ONE (12:36)
[2025-02-03] MEDS: ENOXAPARIN SOD 80 MG/0.8ML SYRINGE SC SCH (12:36)
[2025-02-03] MEDS: AMIODARONE BOLUS KIT 100 ML IV ONE (13:21)
[2025-02-03] MEDS: AMIODARONE 360mg/200mL PREMIX 200 ML IV ONE (13:32)
[2025-02-03 13:46] LABS: Hematocrit 34.9 % (36.0-46.0); Hemoglobin 11.7 g/dL (12.2-16.2); Mean Corpuscular Hemoglobin 33.9 pg (28.0-32.0); Mean Corpuscular Volume 101.2 fL (80.0-100.0); Nucleated Red Blood Cells % 0.0 %
[2025-02-03] MEDS: LEVALBUTEROL HCL 1.25 MG/3 ML NEB NEB PRN (14:42)
[2025-02-03] MEDS: SODIUM CHLORIDE 0.9% 500 ML IV ONE (16:00)
--- NOTE | 2025-02-03 16:58 | DVHINCON2 ---
Date of service: Feb 03, [address] Tena Reason for Consultation Acute kidney injury History of Present Illness Patient is a 75-year-old female with past medical history significant for HTN, hypothyroidism, prediabetes, osteoarthritis and recent UTI is admitted for generalized weakness, hypotension and shortness of breath on admission patient found to have elevated BUN creatinine nephrology is consulted for acute kidney injury Past Medical History PAST MEDICAL HISTORY: HTN, Thyroid, , osteoarthritis, UTI'S Prediabetes, kidney issues Past Surgical History Appendectomy, Cholecystectomy, Tonsillectomy Cataract surgery, Bilateral knee replacement Allergies: Coded Allergies: Amlodipine (Verified Allergy, Unknown, 01/30/25) Doxycycline (Verified Allergy, Unknown, 01/30/25) Hydralazine (Verified Allergy, Unknown, 01/30/25) Lisinopril (Verified Allergy, Unknown, 01/30/25) Nebivolol (Verified Adverse Reaction, Mild, 01/31/25) PATIENT CAN NOT TOLERATE HIGHER DOSES OF THIS MEDICATION Home Meds Reported Medications Hydrocodone-Acetaminophen (Hydrocodone Bitartrate/AC 10-325 mg) 1 Tab Tab, 1 TAB PO Q4HPRN, TAB 01/31/25 Omeprazole (Gnp Omeprazole) 20 Mg Tab, 40 MG PO BID, TAB 01/31/25 Tizanidine Hydrochloride (Zanaflex) 4 Mg Cap, 2 MG PO QPM, CAP 01/31/25 Nebivolol Hcl (Bystolic) 5 Mg Tab, 2.5 MG PO DAILY, TAB 01/31/25 Levothyroxine Sodium (Levothyroxine Sodium) 125 Mcg Tab, 1 TAB PO DAILY, #30 TAB 5 Refills 01/31/25 Current Medications Current Medications Medications (Trade) Dose Ordered Sig/David Route PRN Reason Start Time Stop Time Status Last Admin Amiodarone HCL/ Dextrose 200 ml @ 16.66 mls/ hr Q12H IV 02/03/25 18:00 02/04/25 05:28 DC 02/03/25 20:02 Levalbuterol HCl (Xopenex Medneb) 0.625 mg Q4HPRN PRN NEB SHORTNESS OF BREATH 02/03/25 13:15 02/04/25 08:20 Enoxaparin Sodium (Lovenox) 70 mg DAILY SC 02/04/25 10:00 02/04/25 09:22 Azithromycin 250 ml @ 125 mls/hr DAILY IV 02/05/25 10:00 UNV Family History: Arthritis FHx: rheumatoid arthritis G8 MOTHER FHx: stroke G8 FATHER Review of Systems All 12 item review of systems reviewed with the patient nonsignificant except what is mentioned in the history of present illness H&P Exam Vital Signs/I&O Vital Sign Date Time Temp Pulse Resp B/P (MAP) Pulse Ox O2 Delivery O2 Flow Rate FiO2 02/04/25 09:27 78 119/71 02/04/25 08:28 14 95 02/04/25 08:26 97.7 97.7 02/04/25 08:00 Nasal Cannula* 5 40 Intake and Output 02/03/25 02/04/25 19:00 07:00 Intake Total 525 ml 800 ml Output Total 425 ml Balance 100 ml 800 ml Intake Oral 525 ml 800 ml Output Urine Total 425 ml # Bowel Movements 1 1 Physical Exam Patient is awake and alert Lungs clear to auscultation bilaterally Cardiac exam tachycardia GI soft nontender normal extremity 1+ edema neuro nonfocal Labs/Diagnostic Data Labs/Diagnostic Data Laboratory Tests Test 02/04/25 03:15 02/03/25 17:32 02/03/25 16:30 02/03/25 13:29 Range/Units Urine Color Yellow Yellow Urine Clarity Turbid H Clear Urine pH 5.5 5.0-9.0 Urine Specific [place] 1.021 1.001-1.035 Urine Protein Trace H Negative Urine Ketones Negative Negative Urine Blood Negative Negative /uL Urine Nitrite Negative Negative Urine Bilirubin Negative Negative Urine Urobilinogen Normal Negative mg/dL Urine Leukocyte Esterase 1+ Negative /uL Urine RBC 11 0 - 4 /hpf Urine Microscopic WBC 15 H 0-5 /HPF Urine Squamous Epithelial Cells Few <5 /hpf Urine Bacteria Few H None Seen /hpf Urine Hyaline Casts Few 0 - 2 /lpf Urine Mucus Few None Seen Urine Yeast (Budding) Loaded None Seen /hpf Urine Creatinine 172.94 H 30.0-125.0 mg/dL Urine Protein/Creatinine Ratio 0.33 Urine Sodium < 10 L 40-220 mmol/L Urine Glucose Normal Normal mg/dL Urine Total Protein 56.8 H 1-14 mg/dL Uric Acid 6.2 3.1-7.8 mg/dL Phosphorus Level 3.5 2.4-5.1 mg/dL Magnesium Level 1.9 1.9 1.6-2.6 mg/dL B-Type Natriuretic Peptide 1245.76 0-100 pg/mL Vitamin D 25-Hydroxy 32.7 30.0-100 ng/mL Parathyroid Hormone (Intact) 189.7 H 18.4-80.1 pg/mL Sodium Level 138 136-145 mmol/L Potassium Level 4.9 3.5-5.1 mmol/L Chloride Level 110 H 98-107 mmol/L Carbon Dioxide Level 18 L 20-31 mmol/L Anion Gap 10 5-15 Blood Urea Nitrogen 39 H 9-23 mg/dL Creatinine 2.97 H 2.85 #H 0.550-1.02 mg/dL Glomerular Filtration Rate Calc 16 17 >90 mL/min BUN/Creatinine Ratio 13.1 10.0-20.0 Serum Glucose 141 H 74-106 mg/dL Calcium Level 9.1 8.7-10.4 mg/dL Total Bilirubin 0.6 0.2-1.0 mg/dL Aspartate Amino Transferase (AST) 37 13-40 U/L Alanine Aminotransferase (ALT) 20 7-40 U/L Alkaline Phosphatase 118 H 46-116 U/L Total Protein 6.3 5.7-8.2 g/dL Albumin 3.1 L 3.2-4.8 g/dL Thyroid Stimulating Hormone (TSH) 0.24 L 0.55-4.78 uIU/mL White Blood Count 17.4 #H 4.4-10.8 10^3/uL Red Blood Count 3.45 L 4.0-5.20 10^6/uL Hemoglobin 11.7 L 12.2-16.2 g/dL Hematocrit 34.9 #L 36.0-46.0 % Mean Corpuscular Volume 101.2 H 80.0-100.0 fL Mean Corpuscular Hemoglobin 33.9 H 28.0-32.0 pg Mean Corpuscular Hemoglobin Concent 33.5 32.0-36.0 g/dL Red Cell Distribution Width 16.7 H 11.8-14.3 % Platelet Count 209 140-450 10^3/uL Mean Platelet Volume 9.4 6.9-10.8 fL Neutrophils (%) (Auto) 88.3 H 37.0-80.0 % Lymphocytes (%) (Auto) 4.4 L 10.0-50.0 % Monocytes (%) (Auto) 5.7 0.0-12.0 % Eosinophils (%) (Auto) 1.1 0.0-7.0 % Basophils (%) (Auto) 0.5 0.0-2.0 % Neutrophils # (Auto) 15.4 H 1.6-8.6 10 ^3/uL Lymphocytes # (Auto) 0.8 0.4-5.4 10 ^3/uL Monocytes # (Auto) 1.0 0-1.3 10 ^3/uL Eosinophils # (Auto) 0.2 0-0.8 10 ^3/uL Basophils # (Auto) 0.1 0-0.2 10 ^3/uL Nucleated Red Blood Cells 0.0 % Test 02/03/25 08:41 01/31/25 18:25 01/31/25 05:39 01/30/25 16:35 Range/Units Influenza Type A Antigen Negative Negative Influenza Type B Antigen Negative Negative SARS-CoV-2 Antigen (Rapid) Negative NEGATIVE Urine Color Light-yellow Yellow Urine Clarity Clear Clear Urine pH 5.5 5.0-9.0 Urine Specific [place] 1.016 1.001-1.035 Urine Protein Negative Negative Urine Ketones Trace Negative Urine Blood Negative Negative /uL Urine Nitrite Negative Negative Urine Bilirubin Negative Negative Urine Urobilinogen Normal Negative mg/dL Urine Leukocyte Esterase Negative Negative /uL Urine RBC None seen 0 - 4 /hpf Urine Microscopic WBC 2 0-5 /HPF Urine Squamous Epithelial Cells Few <5 /hpf Urine Bacteria Few H None Seen /hpf Urine Glucose Normal Normal mg/dL White Blood Count 13.7 H 4.4-10.8 10^3/uL Red Blood Count 3.88 L 4.0-5.20 10^6/uL Hemoglobin 12.7 12.2-16.2 g/dL Hematocrit 39.7 36.0-46.0 % Mean Corpuscular Volume 102.2 H 80.0-100.0 fL Mean Corpuscular Hemoglobin 32.8 H 28.0-32.0 pg Mean Corpuscular Hemoglobin Concent 32.1 32.0-36.0 g/dL Red Cell Distribution Width 16.6 H 11.8-14.3 % Platelet Count 155 140-450 10^3/uL Mean Platelet Volume 9.3 6.9-10.8 fL Neutrophils (%) (Auto) 79.8 37.0-80.0 % Lymphocytes (%) (Auto) 8.9 L 10.0-50.0 % Monocytes (%) (Auto) 10.9 0.0-12.0 % Eosinophils (%) (Auto) 0.2 0.0-7.0 % Basophils (%) (Auto) 0.2 0.0-2.0 % Neutrophils # (Auto) 10.9 H 1.6-8.6 10 ^3/uL Lymphocytes # (Auto) 1.2 0.4-5.4 10 ^3/uL Monocytes # (Auto) 1.5 H 0-1.3 10 ^3/uL Eosinophils # (Auto) 0 0-0.8 10 ^3/uL Basophils # (Auto) 0 0-0.2 10 ^3/uL Nucleated Red Blood Cells 0.1 % Sodium Level 139 136-145 mmol/L Potassium Level 4.8 3.5-5.1 mmol/L Chloride Level 108 H 98-107 mmol/L Carbon Dioxide Level 16 L 20-31 mmol/L Anion Gap 15 5-15 Blood Urea Nitrogen 34 H 9-23 mg/dL Creatinine 2.09 H 0.550-1.02 mg/dL Glomerular Filtration Rate Calc 24 >90 mL/min BUN/Creatinine Ratio 16.3 10.0-20.0 Serum Glucose 92 74-106 mg/dL Calcium Level 9.6 8.7-10.4 mg/dL Total Bilirubin 1.2 H 0.2-1.0 mg/dL Aspartate Amino Transferase (AST) 27 13-40 U/L Alanine Aminotransferase (ALT) 15 7-40 U/L Alkaline Phosphatase 97 46-116 U/L Total Protein 6.3 5.7-8.2 g/dL Albumin 3.2 3.2-4.8 g/dL Lactic Acid Level 1.2 0.4-2.0 mmol/L Test 01/30/25 14:38 Range/Units White Blood Count 11.5 H 4.4-10.8 10^3/uL Red Blood Count 3.75 L 4.0-5.20 10^6/uL Hemoglobin 12.2 12.2-16.2 g/dL Hematocrit 37.5 36.0-46.0 % Mean Corpuscular Volume 100.1 H 80.0-100.0 fL Mean Corpuscular Hemoglobin 32.6 H 28.0-32.0 pg Mean Corpuscular Hemoglobin Concent 32.5 32.0-36.0 g/dL Red Cell Distribution Width 16.2 H 11.8-14.3 % Platelet Count 145 140-450 10^3/uL Mean Platelet Volume 8.9 6.9-10.8 fL Neutrophils (%) (Auto) 85.5 H 37.0-80.0 % Lymphocytes (%) (Auto) 5.2 L 10.0-50.0 % Monocytes (%) (Auto) 8.4 0.0-12.0 % Eosinophils (%) (Auto) 0.4 0.0-7.0 % Basophils (%) (Auto) 0.5 0.0-2.0 % Neutrophils # (Auto) 9.8 H 1.6-8.6 10 ^3/uL Lymphocytes # (Auto) 0.6 0.4-5.4 10 ^3/uL Monocytes # (Auto) 1.0 0-1.3 10 ^3/uL Eosinophils # (Auto) 0 0-0.8 10 ^3/uL Basophils # (Auto) 0.1 0-0.2 10 ^3/uL Nucleated Red Blood Cells 0.0 % Sodium Level 140 136-145 mmol/L Potassium Level 4.4 3.5-5.1 mmol/L Chloride Level 109 H 98-107 mmol/L Carbon Dioxide Level 18 L 20-31 mmol/L Anion Gap 13 5-15 Blood Urea Nitrogen 25 H 9-23 mg/dL Creatinine 1.99 H 0.550-1.02 mg/dL Glomerular Filtration Rate Calc 25 >90 mL/min BUN/Creatinine Ratio 12.6 10.0-20.0 Serum Glucose 138 H 74-106 mg/dL Lactic Acid Level 2.4 *H 0.4-2.0 mmol/L Calcium Level 9.0 8.7-10.4 mg/dL Microbiology Date/Time Source Procedure Growth Status 01/31/25 18:25 Voided Urine Urine Culture - Final Complete Assessment Acute kidney injury superimposed Chronic Kidney Disease secondary hemodynamic mediated Acute respiratory failure, O2 supplement Congestive heart failure exacerbation AFib with RVR Sepsis Pneumonia Metabolic acidosis Recommendations Closely monitor fluid and electrolytes Avoid nephrotoxic medications Strict I&O's Check urine electrolytes Check kidney ultrasound I agree with diuresis IV antibiotic IV pressors for blood pressure support We will continue to follow Patient seen and examined by myself. I discussed my plan of care with the patient and primary nurse at the bedside I would like to thank Dr. Tena for the consult, will follow up Total care time 45 minutes Plan discussed with: Patient JULIET BYERS MD Feb 03, 2025 16:58
[2025-02-03 17:49] LABS: Alanine Aminotransferase 20 U/L (7-40); Anion Gap 10 (5-15); BUN/Creatinine Ratio 13.1 (10.0-20.0); Bilirubin, Total 0.6 mg/dL (0.2-1.0); Calcium 9.1 mg/dL (8.7-10.4); Magnesium 1.9 mg/dL (1.6-2.6); Potassium 4.9 mmol/L (3.5-5.1); Sodium 138 mmol/L (136-145); Total Protein 6.3 g/dL (5.7-8.2)
[2025-02-03 18:27] LABS: Albumin 3.1 g/dL (3.2-4.8); Alkaline Phosphatase 118 U/L (46-116); Blood Urea Nitrogen 39 mg/dL (9-23); Carbon Dioxide 18 mmol/L (20-31); Chloride 110 mmol/L (98-107); Glucose 141 mg/dL (74-106)
--- NOTE | 2025-02-03 18:28 | DVH ---
INDICATION: mariana TECHNIQUE: Multiple real-time sonographic images of the kidneys and bladder were obtained. COMPARISON: None FINDINGS: RIGHT kidney measures 9.6 cm in length. Multiple cortical cysts largest measures 1.5 x 1.5 x 1.4 cm. Increased cortical echogenicity No hydronephrosis. LEFT kidney measures 9.4 cm in length. Multiple cortical cysts. Largest measures 1 0.3 x 1 x 0.9 cm. Increased cortical echogenicity with decreased cortical thickness. No hydronephrosis. No large intraluminal masses are seen in the bladder. Prevoid bladder volume 104 mL. Bladder wall measures 5.7 mm No postvoid study of the bladder. IMPRESSION: 1. 9.6 cm right kidney. 9.4 cm left kidney. 2. No hydronephrosis bilaterally. 3. Increased cortical echogenicity on the right with increased cortical echogenicity on the left and decreased cortical thickness. 4. Bilateral renal cysts as measured above. 5. Prevoid bladder volume 104 mL. Patient had no urge to void. 6. No ureteral jets visualized. 7. Bladder wall measures 5.7 mm
[2025-02-03 18:50] LABS: Uric Acid 6.2 mg/dL (3.1-7.8)
[2025-02-03 18:52] LABS: Magnesium 1.9 mg/dL (1.6-2.6)
[2025-02-03] MEDS: AMIODARONE 360mg/200mL PREMIX 200 ML IV SCH (20:02)
[2025-02-04] VITALS (17 sets, daily range): BP systolic 99–117; BP diastolic 60–79; PULSE 64–81; RESP 14–22; TEMP 97.7–98.7; O2SAT 90–99
[2025-02-04 03:58] LABS: Protein, Urine 56.8 mg/dL (1-14)
[2025-02-04 04:20] LABS: Urine Budding Yeast LOADED /hpf (None Seen); Urine Protein, UAD TRACE (Negative)
--- NOTE | 2025-02-04 07:51 | ECG ---
[facility] Test Date: 2025-02-03 Test Time: 12:50:18 Pat Name: ZAIRA HERMAN Department: Room: 0276T A Gender: F Angiography Nurse: venice : [id number] Requested By: SORIN MARIE Order Number: [id number] Reading MD: Pan Ayers Measurements Intervals [place] Rate: 140 P: 0 W[place]: 0 QRS: 64 QRSD: 136 T: -5 QT: 308 QTc: 470 Interpretive Statements Atrial fibrillation Right bundle branch block Baseline wander in lead(s) V1,V2 Electronically Signed On 02-08-2025 19:38:16 PDT by Pan Ayers Please click the below link to view image of tracing.
[2025-02-04] MEDS: ENOXAPARIN SOD 80 MG/0.8ML SYRINGE SC SCH (09:22)
--- NOTE | 2025-02-04 11:35 | DVHPN2 ---
Progress Note Date Seen: Feb 04, 2025 Medical Necessity Reason Pt with a Central, PICC or Fol: No Subjective Other Systems: Patient seen and examined by myself today in follow-up Objective vital signs Vital Sign Date Time Temp Pulse Resp B/P (MAP) Pulse Ox O2 Delivery O2 Flow Rate FiO2 02/04/25 09:27 78 119/71 02/04/25 08:28 14 95 02/04/25 08:26 97.7 97.7 02/04/25 08:00 Nasal Cannula* 5 40 Total Intake and Output 02/03/25 02/03/25 02/04/25 15:00 23:00 07:00 Intake Total 525 ml 800 ml Output Total 425 ml Balance 100 ml 800 ml medications Current Medications Medications Dose Ordered Sig/David Route Start Time Stop Time Status Last Admin Dose Admin Pantoprazole Sodium 40 mg DAILY IV 01/31/25 10:00 02/04/25 09:25 40 MG Ondansetron HCl 4 mg Q4HP PRN IV 01/30/25 17:30 02/03/25 18:05 4 MG Acetaminophen 650 mg Q6HP PRN PO 01/30/25 17:30 Nitroglycerin 0.4 mg Q5MINP PRN SL 01/30/25 17:30 Morphine Sulfate 2 mg Q30M PRN IV 01/30/25 18:00 Acetaminophen/ Hydrocodone Bitart 1 tab Q8HPRN PRN PO 01/30/25 20:45 02/04/25 09:25 1 TAB Levofloxacin 50 ml @ 50 mls/hr DAILY IV 01/31/25 10:00 02/04/25 09:26 50 MLS/HR Dextrose/Sodium Chloride 1,000 ml @ 125 mls/hr Q8H IV 01/31/25 13:15 02/03/25 22:10 125 MLS/HR Acetaminophen/ Hydrocodone Bitart 1 tab Q6HR PO 02/03/25 00:00 02/04/25 05:55 1 TAB Metoprolol Succinate 50 mg DAILY PO 02/03/25 11:45 02/04/25 09:27 50 MG Levalbuterol HCl 0.625 mg Q4HPRN PRN NEB 02/03/25 13:15 02/04/25 08:20 0.625 MG Enoxaparin Sodium 70 mg DAILY SC 02/04/25 10:00 02/04/25 09:22 70 MG Examination: LUNGS:Normal, CVS:Normal, MSK:Abnormal laboratory and microbiology Laboratory Tests 02/03/25 16:30 02/03/25 13:29 Test 02/03/25 16:30 Range/Units Serum Glucose 141 H 74-106 mg/dL Microbiology Date/Time Source Procedure Growth Status 01/31/25 18:25 Voided Urine Urine Culture - Final Complete 01/30/25 14:38 Blood Blood Culture - Preliminary NO GROWTH AFTER 72 HOURS OF INCUBATION. Resulted Problem List/Assessment/Plan Problem List/Assessment/Plan Acute kidney injury superimposed Chronic Kidney Disease secondary hemodynamic mediated, feNa < 1% Acute respiratory failure Congestive heart failure exacerbation AFib with RVR Sepsis Pneumonia Metabolic acidosis Recommendations No labs for today Strict I&O's kidney ultrasound reported bilateral echogenic kidneys, no hydronephrosis IV antibiotic I agree with diuresis IV pressors for blood pressure support We will continue to follow Total care time 35 minutes Plan discussed with: Patient My Orders My Orders Orders - JULIET BYERS MD Procedure Category Date Status Time Kidney US 02/03/25 Resulted 16:48 Dietary Evaluation Review Recommendations by RD: Protein Supplementation Comments: 1) Initiate Ensure High Protein qd 2) Add 2g Na restriction to diet 3) Encourage optimal PO intake 4) Follow-up with cardiology and urology 5) Continue to monitor I&O, labs, and skin integrity Expected Outcomes/Goals: 1) appetite and labs to improve 2) f/u in 3-5 days JULIET BYERS MD Feb 04, 2025 11:35
--- NOTE | 2025-02-04 11:48 | DVHPN2 ---
Reviewed: Care Plan, H&P, Labs, Medications, Previous Orders, Radiology Changes from previous H/P or p: No Changes Objective Vitals Vital Signs Date Time Temp Pulse Resp B/P (MAP) Pulse Ox O2 Delivery O2 Flow Rate FiO2 02/04/25 09:27 78 119/71 02/04/25 08:28 14 95 02/04/25 08:26 97.7 97.7 02/04/25 08:00 Nasal Cannula* 5 40 Intake/Output Intake and Output 02/04/25 07:00 Intake Total 1325 ml Output Total 425 ml Balance 900 ml Intake Oral 1325 ml Output Urine Total 425 ml # Bowel Movements 2 Medications Current Medications Medications Dose Ordered Sig/David Route Start Time Stop Time Status Last Admin Dose Admin Pantoprazole Sodium 40 mg DAILY IV 01/31/25 10:00 02/04/25 09:25 40 MG Ondansetron HCl 4 mg Q4HP PRN IV 01/30/25 17:30 02/03/25 18:05 4 MG Acetaminophen 650 mg Q6HP PRN PO 01/30/25 17:30 Nitroglycerin 0.4 mg Q5MINP PRN SL 01/30/25 17:30 Morphine Sulfate 2 mg Q30M PRN IV 01/30/25 18:00 Acetaminophen/ Hydrocodone Bitart 1 tab Q8HPRN PRN PO 01/30/25 20:45 02/04/25 09:25 1 TAB Levofloxacin 50 ml @ 50 mls/hr DAILY IV 01/31/25 10:00 02/04/25 09:26 50 MLS/HR Dextrose/Sodium Chloride 1,000 ml @ 125 mls/hr Q8H IV 01/31/25 13:15 02/03/25 22:10 125 MLS/HR Acetaminophen/ Hydrocodone Bitart 1 tab Q6HR PO 02/03/25 00:00 02/04/25 05:55 1 TAB Metoprolol Succinate 50 mg DAILY PO 02/03/25 11:45 02/04/25 09:27 50 MG Levalbuterol HCl 0.625 mg Q4HPRN PRN NEB 02/03/25 13:15 02/04/25 08:20 0.625 MG Enoxaparin Sodium 70 mg DAILY SC 02/04/25 10:00 02/04/25 09:22 70 MG Laboratory Results Laboratory Tests 02/03/25 13:29 02/03/25 16:30 Chemistry Test 02/03/25 16:30 02/03/25 17:32 Albumin 3.1 g/dL (3.2-4.8) L Calcium Level 9.1 mg/dL (8.7-10.4) Magnesium Level 1.9 mg/dL (1.6-2.6) 1.9 mg/dL (1.6-2.6) Total Protein 6.3 g/dL (5.7-8.2) Phosphorus Level 3.5 mg/dL (2.4-5.1) Cardiac Markers Test 02/03/25 17:32 B-Type Natriuretic Peptide 1245.76 pg/mL (0-100) LFT Test 02/03/25 16:30 Alanine Aminotransferase (ALT) 20 U/L (7-40) Alkaline Phosphatase 118 U/L (46-116) H Aspartate Amino Transferase (AST) 37 U/L (13-40) Total Bilirubin 0.6 mg/dL (0.2-1.0) HgA1c, TSH Test 02/03/25 16:30 Thyroid Stimulating Hormone (TSH) 0.24 uIU/mL (0.55-4.78) L Urinalysis Test 02/04/25 03:15 Urine Color Yellow (Yellow) Urine Clarity Turbid (Clear) H Urine pH 5.5 (5.0-9.0) Urine Specific [place] 1.021 (1.001-1.035) Urine Protein Trace (Negative) H Urine Ketones Negative (Negative) Urine Blood Negative /uL (Negative) Urine Nitrite Negative (Negative) Urine Bilirubin Negative (Negative) Urine Urobilinogen Normal mg/dL (Negative) Urine Leukocyte Esterase 1+ /uL (Negative) Urine RBC 11 /hpf (0 - 4) Urine Microscopic WBC 15 /HPF (0-5) H Urine Squamous Epithelial Cells Few /hpf (<5) Urine Bacteria Few /hpf (None Seen) H Urine Hyaline Casts Few /lpf (0 - 2) Urine Mucus Few (None Seen) Urine Yeast (Budding) Loaded /hpf (None Seen) Urine Creatinine 172.94 mg/dL (30.0-125.0) H Urine Protein/Creatinine Ratio 0.33 Urine Sodium < 10 mmol/L (40-220) L Urine Glucose Normal mg/dL (Normal) Urine Total Protein 56.8 mg/dL (1-14) H Microbiology Microbiology Date/Time Source Procedure Growth Status 01/31/25 18:25 Voided Urine Urine Culture - Final Complete 01/30/25 14:38 Blood Blood Culture - Preliminary NO GROWTH AFTER 72 HOURS OF INCUBATION. Resulted Labs and/or images reviewed: Labs reviewed by me, Image(s) reviewed by me Assessment/Plan Assessment/Plan Septic shock with hypotension altered mental status elevated white count secondary to urinary tract infection Acute urinary tract infection: Blood cultures negative, urine cultures negative, continue Rocephin Hypotension secondary to septic shock: IV fluids Hypertension: Hold blood pressure medication as the patient now has sepsis Hypothyroidism History of recurrent urinary tract infections Moderate malnutrition SOHAIL on CKD consult by Nephrology appreciated History of cholecystectomy appendectomy hysterectomy colectomy for colon cancer gastric ulcer surgery Vaginal prolapse under the treatment of police liaison Chronic pain: Rhodelia 10 q.6 hours per patient request Right lower lobe pneumonia: Add azithromycin to Rocephin Afib with RVR new onset, consult by Dr. Pepper appreciated echocardiogram shows RV dysfunction started on Lovenox amiodarone discharge Time spent 50 minutes Advanced care planning time 20 minutes Patient is full code Daughter Gayatri [phone] at bedside Recently treated at [place] for sepsis secondary to urinary tract infection discharged home on cefdinir and Keflex Plan discussed with: Patient My Orders Orders - SUHAIL CARLIN MD Procedure Category Date Status Time Levalbuterol Hcl PHA 02/03/25 In Process (Xopenex Medneb) 13:15 Date of Service: Feb 04, 2025 Billing Provider: SUHAIL CARLIN MD Common Visit Codes: [id number] INP/OBS CARE(HIGH) SUHAIL CARLIN MD Feb 04, 2025 11:48
[2025-02-04] MEDS: FUROSEMIDE 40 MG/4 ML VIAL IV SCH (14:03)
[2025-02-04] MEDS: AZITHROMYCIN 500MG/ 250ML 250 ML IV ONE (14:03)
[2025-02-04] MEDS: CALCITRIOL 0.25 MCG CAP PO SCH (14:04)
[2025-02-04] MEDS: AMIODARONE HCL 200 MG TAB PO SCH (23:04)
[2025-02-05] VITALS (16 sets, daily range): BP systolic 103–114; BP diastolic 44–76; PULSE 51–108; RESP 16–22; TEMP 97.4–98.5; O2SAT 90–100
[2025-02-05 07:17] LABS: Alanine Aminotransferase 31 U/L (7-40); Anion Gap 12 (5-15); BUN/Creatinine Ratio 13.1 (10.0-20.0); Bilirubin, Total 0.5 mg/dL (0.2-1.0); Calcium 9.3 mg/dL (8.7-10.4); Glucose 99 mg/dL (74-106); Potassium 4.3 mmol/L (3.5-5.1); Sodium 141 mmol/L (136-145); Total Protein 6.3 g/dL (5.7-8.2)
[2025-02-05 07:20] LABS: Albumin 3.1 g/dL (3.2-4.8); Alkaline Phosphatase 123 U/L (46-116); Blood Urea Nitrogen 38 mg/dL (9-23); Carbon Dioxide 18 mmol/L (20-31); Chloride 111 mmol/L (98-107)
--- NOTE | 2025-02-05 11:03 | DVHPN2 ---
Reviewed: Care Plan, H&P, Labs, Medications, Previous Orders, Radiology Changes from previous H/P or p: No Changes Objective Vitals Vital Signs Date Time Temp Pulse Resp B/P (MAP) Pulse Ox O2 Delivery O2 Flow Rate FiO2 02/05/25 10:27 103/72 02/05/25 10:26 91 02/05/25 07:21 18 98 02/05/25 07:15 Nasal Cannula* 5 40 02/05/25 05:00 98.1 98.1 Intake/Output Intake and Output 02/05/25 07:00 Intake Total 850 ml Output Total 650 ml Balance 200 ml Intake Oral 600 ml IV Total 250 ml Output Urine Total 650 ml # Voids 1 # Bowel Movements 2 Medications Current Medications Medications Dose Ordered Sig/David Route Start Time Stop Time Status Last Admin Dose Admin Pantoprazole Sodium 40 mg DAILY IV 01/31/25 10:00 02/05/25 10:27 40 MG Ondansetron HCl 4 mg Q4HP PRN IV 01/30/25 17:30 02/04/25 14:03 4 MG Acetaminophen 650 mg Q6HP PRN PO 01/30/25 17:30 Nitroglycerin 0.4 mg Q5MINP PRN SL 01/30/25 17:30 Morphine Sulfate 2 mg Q30M PRN IV 01/30/25 18:00 Acetaminophen/ Hydrocodone Bitart 1 tab Q8HPRN PRN PO 01/30/25 20:45 02/04/25 09:25 1 TAB Dextrose/Sodium Chloride 1,000 ml @ 125 mls/hr Q8H IV 01/31/25 13:15 02/04/25 23:05 125 MLS/HR Acetaminophen/ Hydrocodone Bitart 1 tab Q6HR PO 02/03/25 00:00 02/05/25 06:07 1 TAB Metoprolol Succinate 50 mg DAILY PO 02/03/25 11:45 02/05/25 10:26 50 MG Levalbuterol HCl 0.625 mg Q4HPRN PRN NEB 02/03/25 13:15 02/05/25 07:15 0.625 MG Enoxaparin Sodium 70 mg DAILY SC 02/04/25 10:00 02/05/25 10:27 70 MG Azithromycin 250 ml @ 125 mls/hr DAILY IV 02/05/25 10:00 Furosemide 40 mg DAILY IV 02/04/25 12:15 02/05/25 10:27 40 MG Calcitriol 0.25 mcg DAILY PO 02/04/25 12:15 02/05/25 10:26 0.25 MCG Ceftriaxone Sodium 50 ml @ 100 mls/hr DAILY@09 IV 02/05/25 09:00 02/05/25 10:27 100 MLS/HR Amiodarone HCl 200 mg Q12HR PO 02/04/25 22:00 02/05/25 10:26 200 MG Laboratory Results Laboratory Tests 02/03/25 13:29 02/05/25 06:27 Chemistry Test 02/05/25 06:27 Albumin 3.1 g/dL (3.2-4.8) L Calcium Level 9.3 mg/dL (8.7-10.4) Total Protein 6.3 g/dL (5.7-8.2) LFT Test 02/05/25 06:27 Alanine Aminotransferase (ALT) 31 U/L (7-40) Alkaline Phosphatase 123 U/L (46-116) H Aspartate Amino Transferase (AST) 52 U/L (13-40) H Total Bilirubin 0.5 mg/dL (0.2-1.0) Urinalysis Test 02/04/25 03:15 Urine Color Yellow (Yellow) Urine Clarity Turbid (Clear) H Urine pH 5.5 (5.0-9.0) Urine Specific [place] 1.021 (1.001-1.035) Urine Protein Trace (Negative) H Urine Ketones Negative (Negative) Urine Blood Negative /uL (Negative) Urine Nitrite Negative (Negative) Urine Bilirubin Negative (Negative) Urine Urobilinogen Normal mg/dL (Negative) Urine Leukocyte Esterase 1+ /uL (Negative) Urine RBC 11 /hpf (0 - 4) Urine Microscopic WBC 15 /HPF (0-5) H Urine Squamous Epithelial Cells Few /hpf (<5) Urine Bacteria Few /hpf (None Seen) H Urine Hyaline Casts Few /lpf (0 - 2) Urine Mucus Few (None Seen) Urine Yeast (Budding) Loaded /hpf (None Seen) Urine Creatinine 172.94 mg/dL (30.0-125.0) H Urine Protein/Creatinine Ratio 0.33 Urine Sodium < 10 mmol/L (40-220) L Urine Glucose Normal mg/dL (Normal) Urine Total Protein 56.8 mg/dL (1-14) H Microbiology Microbiology Date/Time Source Procedure Growth Status 01/31/25 18:25 Voided Urine Urine Culture - Final Complete 01/30/25 14:38 Blood Blood Culture - Final NO GROWTH AFTER 5 DAYS OF INCUBATION. Complete Labs and/or images reviewed: Labs reviewed by me, Image(s) reviewed by me Assessment/Plan Assessment/Plan Septic shock with hypotension altered mental status elevated white count secondary to urinary tract infection Acute urinary tract infection: Blood cultures negative, urine cultures negative, continue Rocephin Hypotension secondary to septic shock: IV fluids Hypertension: Hold blood pressure medication as the patient now has sepsis Hypothyroidism History of recurrent urinary tract infections Moderate malnutrition SOHAIL on CKD consult by Nephrology appreciated History of cholecystectomy appendectomy hysterectomy colectomy for colon cancer gastric ulcer surgery Vaginal prolapse under the treatment of 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 Pepper appreciated echocardiogram shows RV dysfunction started on Lovenox amiodarone drip Time spent 50 minutes Advanced care planning time 20 minutes Patient is full code Daughter Gayatri [phone] at bedside Recently treated at [facility] for sepsis secondary to urinary tract infection discharged home on cefdinir and Keflex Plan discussed with: Patient My Orders Orders - SUHAIL CARLIN MD Procedure Category Date Status Time Azithromycin 500mg/ PHA 02/05/25 In Process 250ml (Zithromax 50 10:00 Ceftriaxone 1gm/50ml PHA 02/05/25 In Process (Rocephin) 09:00 Date of Service: Feb 05, 2025 Billing Provider: SUHAIL CARLIN MD Common Visit Codes: [id number] INP/OBS CARE(HIGH) SUHAIL CARLIN MD Feb 05, 2025 11:03
[2025-02-05] MEDS: AZITHROMYCIN 500MG/ 250ML 250 ML IV SCH (11:31)
--- NOTE | 2025-02-05 11:40 | DVHPN2 ---
Progress Note Date Seen: Feb 05, 2025 Medical Necessity Reason Pt with a Central, PICC or Fol: No Objective vital signs Vital Sign Date Time Temp Pulse Resp B/P (MAP) Pulse Ox O2 Delivery O2 Flow Rate FiO2 02/05/25 10:27 103/72 02/05/25 10:26 91 02/05/25 09:00 98.5 16 92 98.5 02/05/25 07:15 Nasal Cannula* 5 40 Total Intake and Output 02/04/25 02/04/25 02/05/25 15:00 23:00 07:00 Intake Total 250 ml 600 ml Output Total 250 ml 400 ml Balance 0 ml 200 ml medications Current Medications Medications Dose Ordered Sig/David Route Start Time Stop Time Status Last Admin Dose Admin Pantoprazole Sodium 40 mg DAILY IV 01/31/25 10:00 02/05/25 10:27 40 MG Ondansetron HCl 4 mg Q4HP PRN IV 01/30/25 17:30 02/04/25 14:03 4 MG Acetaminophen 650 mg Q6HP PRN PO 01/30/25 17:30 Nitroglycerin 0.4 mg Q5MINP PRN SL 01/30/25 17:30 Morphine Sulfate 2 mg Q30M PRN IV 01/30/25 18:00 Acetaminophen/ Hydrocodone Bitart 1 tab Q8HPRN PRN PO 01/30/25 20:45 02/04/25 09:25 1 TAB Dextrose/Sodium Chloride 1,000 ml @ 125 mls/hr Q8H IV 01/31/25 13:15 02/04/25 23:05 125 MLS/HR Acetaminophen/ Hydrocodone Bitart 1 tab Q6HR PO 02/03/25 00:00 02/05/25 06:07 1 TAB Metoprolol Succinate 50 mg DAILY PO 02/03/25 11:45 02/05/25 10:26 50 MG Levalbuterol HCl 0.625 mg Q4HPRN PRN NEB 02/03/25 13:15 02/05/25 07:15 0.625 MG Enoxaparin Sodium 70 mg DAILY SC 02/04/25 10:00 02/05/25 10:27 70 MG Azithromycin 250 ml @ 125 mls/hr DAILY IV 02/05/25 10:00 02/05/25 11:31 125 MLS/HR Furosemide 40 mg DAILY IV 02/04/25 12:15 02/05/25 10:27 40 MG Calcitriol 0.25 mcg DAILY PO 02/04/25 12:15 02/05/25 10:26 0.25 MCG Ceftriaxone Sodium 50 ml @ 100 mls/hr DAILY@09 IV 02/05/25 09:00 02/05/25 10:27 100 MLS/HR Amiodarone HCl 200 mg Q12HR PO 02/04/25 22:00 02/05/25 10:26 200 MG Examination: LUNGS:Normal, CVS:Normal, MSK:Normal laboratory and microbiology Laboratory Tests 02/05/25 06:27 02/03/25 13:29 Test 02/05/25 06:27 Range/Units Serum Glucose 99 74-106 mg/dL Microbiology Date/Time Source Procedure Growth Status 01/31/25 18:25 Voided Urine Urine Culture - Final Complete 01/30/25 14:38 Blood Blood Culture - Final NO GROWTH AFTER 5 DAYS OF INCUBATION. Complete Problem List/Assessment/Plan Problem List/Assessment/Plan Acute kidney injury superimposed Chronic Kidney Disease stage IV secondary hemodynamic mediated, feNa < 1% Acute respiratory failure Congestive heart failure exacerbation AFib with RVR Sepsis Pneumonia Metabolic acidosis Secondary hyperparathyroidism Recommendations Kidney function stable Chronic Kidney Disease stage 4 Strict I&O's kidney ultrasound reported bilateral echogenic kidneys, no hydronephrosis IV antibiotic I agree with diuresis Calcitriol 0.25 mcg p.o. q.day Sodium bicarbonate tablets IV pressors for blood pressure support We will continue to follow Total care time 35 minutes Plan discussed with: Patient My Orders My Orders Orders - JULIET BYERS MD Procedure Category Date Status Time Strict I & O MELONIE 02/04/25 In Process 12:03 Communication Order ORDERS 02/04/25 Transmitted 12:03 Follow Up In 2 Wk ORDERS 02/04/25 Transmitted Upon D/C 12:03 Renal DIET 02/04/25 Transmitted Standard(2gna,3gk,Lopho) Lunch Comprehensive LAB 02/06/25 Verified Metabolic Panel 05:00 Comprehensive LAB 02/07/25 Verified Metabolic Panel 05:00 Comprehensive LAB 02/08/25 Verified Metabolic Panel 05:00 Furosemide Injection PHA 02/04/25 In Process (Lasix Injection) 12:15 Calcitriol Capsule PHA 02/04/25 In Process (Rocaltrol Capsule) 12:15 Dietary Evaluation Review Recommendations by RD: Protein Supplementation Comments: 1) Initiate Ensure High Protein qd 2) Add 2g Na restriction to diet 3) Encourage optimal PO intake 4) Follow-up with cardiology and urology 5) Continue to monitor I&O, labs, and skin integrity Expected Outcomes/Goals: 1) appetite and labs to improve 2) f/u in 3-5 days JULIET BYERS MD Feb 05, 2025 11:40
[2025-02-05] MEDS: SODIUM BICARBONATE 650 MG TAB PO SCH (14:43)
[2025-02-06] VITALS (12 sets, daily range): BP systolic 104–125; BP diastolic 57–69; PULSE 63–89; RESP 16–20; TEMP 97.4–98.3; O2SAT 93–100
[2025-02-06 07:26] LABS: Alanine Aminotransferase 28 U/L (7-40); Anion Gap 15 (5-15); BUN/Creatinine Ratio 15.8 (10.0-20.0); Calcium 8.9 mg/dL (8.7-10.4); Glucose 105 mg/dL (74-106); Potassium 4.2 mmol/L (3.5-5.1); Sodium 142 mmol/L (136-145)
[2025-02-06 07:28] LABS: Albumin 2.8 g/dL (3.2-4.8); Alkaline Phosphatase 118 U/L (46-116); Bilirubin, Total 0.6 mg/dL (0.2-1.0); Blood Urea Nitrogen 42 mg/dL (9-23); Carbon Dioxide 16 mmol/L (20-31); Chloride 111 mmol/L (98-107); Total Protein 5.6 g/dL (5.7-8.2)
--- NOTE | 2025-02-06 10:36 | DVHPN2 ---
Progress Note Date Seen: Feb 06, 2025 Medical Necessity Reason Pt with a Central, PICC or Fol: No Subjective Review of Systems: RESPIRATORY:Abnormal (Patient seen and examined by myself today in follow-up) Objective vital signs Vital Sign Date Time Temp Pulse Resp B/P (MAP) Pulse Ox O2 Delivery O2 Flow Rate FiO2 02/06/25 09:33 125/69 02/06/25 09:28 76 02/06/25 08:43 100 Nasal Cannula* 5 40 02/06/25 08:43 16 02/06/25 05:00 98.3 98.3 Total Intake and Output 02/05/25 02/05/25 02/06/25 15:00 23:00 07:00 Intake Total 1300 ml 480 ml 450 ml Output Total 150 ml 125 ml Balance 1300 ml 330 ml 325 ml medications Current Medications Medications Dose Ordered Sig/David Route Start Time Stop Time Status Last Admin Dose Admin Pantoprazole Sodium 40 mg DAILY IV 01/31/25 10:00 02/06/25 09:21 40 MG Ondansetron HCl 4 mg Q4HP PRN IV 01/30/25 17:30 02/04/25 14:03 4 MG Acetaminophen 650 mg Q6HP PRN PO 01/30/25 17:30 Nitroglycerin 0.4 mg Q5MINP PRN SL 01/30/25 17:30 Morphine Sulfate 2 mg Q30M PRN IV 01/30/25 18:00 Acetaminophen/ Hydrocodone Bitart 1 tab Q8HPRN PRN PO 01/30/25 20:45 02/04/25 09:25 1 TAB Dextrose/Sodium Chloride 1,000 ml @ 125 mls/hr Q8H IV 01/31/25 13:15 02/06/25 02:47 125 MLS/HR Acetaminophen/ Hydrocodone Bitart 1 tab Q6HR PO 02/03/25 00:00 02/06/25 07:35 1 TAB Metoprolol Succinate 50 mg DAILY PO 02/03/25 11:45 02/06/25 09:28 50 MG Levalbuterol HCl 0.625 mg Q4HPRN PRN NEB 02/03/25 13:15 02/06/25 08:43 0.625 MG Enoxaparin Sodium 70 mg DAILY SC 02/04/25 10:00 02/06/25 09:22 70 MG Azithromycin 250 ml @ 125 mls/hr DAILY IV 02/05/25 10:00 02/05/25 11:31 125 MLS/HR Furosemide 40 mg DAILY IV 02/04/25 12:15 02/06/25 09:33 40 MG Calcitriol 0.25 mcg DAILY PO 02/04/25 12:15 02/06/25 09:22 0.25 MCG Ceftriaxone Sodium 50 ml @ 100 mls/hr DAILY@09 IV 02/05/25 09:00 02/06/25 09:21 100 MLS/HR Amiodarone HCl 200 mg Q12HR PO 02/04/25 22:00 02/06/25 09:23 200 MG Sodium Bicarbonate 650 mg TID PO 02/05/25 14:00 02/06/25 07:34 650 MG Examination: LUNGS:Normal, CVS:Normal, MSK:Abnormal laboratory and microbiology Laboratory Tests 02/06/25 05:44 02/03/25 13:29 Test 02/06/25 05:44 Range/Units Serum Glucose 105 74-106 mg/dL Microbiology Date/Time Source Procedure Growth Status 01/31/25 18:25 Voided Urine Urine Culture - Final Complete 01/30/25 14:38 Blood Blood Culture - Final NO GROWTH AFTER 5 DAYS OF INCUBATION. Complete Problem List/Assessment/Plan Problem List/Assessment/Plan Acute kidney injury superimposed Chronic Kidney Disease stage IV secondary hemodynamic mediated, feNa < 1% Acute respiratory failure, high flow oxygen Congestive heart failure exacerbation AFib with RVR Sepsis Pneumonia Metabolic acidosis Secondary hyperparathyroidism Recommendations Kidney function stable Chronic Kidney Disease stage 4 Strict I&O's kidney ultrasound reported bilateral echogenic kidneys, no hydronephrosis IV antibiotic Discontinue IV fluid Bumex 0.5 mg/hr IV Calcitriol 0.25 mcg p.o. q.day Sodium bicarbonate tablets IV pressors for blood pressure support We will continue to follow Total care time 35 minutes Plan discussed with: Patient My Orders My Orders Orders - JULIET BYERS MD Procedure Category Date Status Time Sodium Bicarb Tab PHA 02/05/25 In Process 14:00 Dietary Evaluation Review Recommendations by RD: Protein Supplementation Comments: 1) Initiate Ensure High Protein qd 2) Add 2g Na restriction to diet 3) Encourage optimal PO intake 4) Follow-up with cardiology and urology 5) Continue to monitor I&O, labs, and skin integrity Expected Outcomes/Goals: 1) appetite and labs to improve 2) f/u in 3-5 days JULIET BYERS MD Feb 06, 2025 10:36
--- NOTE | 2025-02-06 12:04 | DVHPN2 ---
Reviewed: Care Plan, H&P, Labs, Medications, Previous Orders, Radiology Changes from previous H/P or p: No Changes Objective Vitals Vital Signs Date Time Temp Pulse Resp B/P (MAP) Pulse Ox O2 Delivery O2 Flow Rate FiO2 02/06/25 09:33 125/69 02/06/25 09:28 76 02/06/25 08:43 100 Nasal Cannula* 5 40 02/06/25 08:43 16 02/06/25 05:00 98.3 98.3 Intake/Output Intake and Output 02/06/25 07:00 Intake Total 2230 ml Output Total 275 ml Balance 1955 ml Intake Oral 930 ml IV Total 1300 ml Output Urine Total 275 ml # Voids 2 # Bowel Movements 2 Medications Current Medications Medications Dose Ordered Sig/David Route Start Time Stop Time Status Last Admin Dose Admin Pantoprazole Sodium 40 mg DAILY IV 01/31/25 10:00 02/06/25 09:21 40 MG Ondansetron HCl 4 mg Q4HP PRN IV 01/30/25 17:30 02/04/25 14:03 4 MG Acetaminophen 650 mg Q6HP PRN PO 01/30/25 17:30 Nitroglycerin 0.4 mg Q5MINP PRN SL 01/30/25 17:30 Morphine Sulfate 2 mg Q30M PRN IV 01/30/25 18:00 Acetaminophen/ Hydrocodone Bitart 1 tab Q8HPRN PRN PO 01/30/25 20:45 02/04/25 09:25 1 TAB Acetaminophen/ Hydrocodone Bitart 1 tab Q6HR PO 02/03/25 00:00 02/06/25 07:35 1 TAB Metoprolol Succinate 50 mg DAILY PO 02/03/25 11:45 02/06/25 09:28 50 MG Levalbuterol HCl 0.625 mg Q4HPRN PRN NEB 02/03/25 13:15 02/06/25 08:43 0.625 MG Enoxaparin Sodium 70 mg DAILY SC 02/04/25 10:00 02/06/25 09:22 70 MG Azithromycin 250 ml @ 125 mls/hr DAILY IV 02/05/25 10:00 02/05/25 11:31 125 MLS/HR Calcitriol 0.25 mcg DAILY PO 02/04/25 12:15 02/06/25 09:22 0.25 MCG Ceftriaxone Sodium 50 ml @ 100 mls/hr DAILY@09 IV 02/05/25 09:00 02/06/25 09:21 100 MLS/HR Amiodarone HCl 200 mg Q12HR PO 02/04/25 22:00 02/06/25 09:23 200 MG Sodium Bicarbonate 650 mg TID PO 02/05/25 14:00 02/06/25 07:34 650 MG Bumetanide 12.5 mg/Miscellaneous 50 ml @ 2 mls/hr Q24H IV 02/06/25 10:45 UNV Laboratory Results Laboratory Tests 02/03/25 13:29 02/06/25 05:44 Chemistry Test 02/06/25 05:44 Albumin 2.8 g/dL (3.2-4.8) L Calcium Level 8.9 mg/dL (8.7-10.4) Total Protein 5.6 g/dL (5.7-8.2) L LFT Test 02/06/25 05:44 Alanine Aminotransferase (ALT) 28 U/L (7-40) Alkaline Phosphatase 118 U/L (46-116) H Aspartate Amino Transferase (AST) 40 U/L (13-40) Total Bilirubin 0.6 mg/dL (0.2-1.0) Urinalysis Test 02/04/25 03:15 Urine Color Yellow (Yellow) Urine Clarity Turbid (Clear) H Urine pH 5.5 (5.0-9.0) Urine Specific [place] 1.021 (1.001-1.035) Urine Protein Trace (Negative) H Urine Ketones Negative (Negative) Urine Blood Negative /uL (Negative) Urine Nitrite Negative (Negative) Urine Bilirubin Negative (Negative) Urine Urobilinogen Normal mg/dL (Negative) Urine Leukocyte Esterase 1+ /uL (Negative) Urine RBC 11 /hpf (0 - 4) Urine Microscopic WBC 15 /HPF (0-5) H Urine Squamous Epithelial Cells Few /hpf (<5) Urine Bacteria Few /hpf (None Seen) H Urine Hyaline Casts Few /lpf (0 - 2) Urine Mucus Few (None Seen) Urine Yeast (Budding) Loaded /hpf (None Seen) Urine Creatinine 172.94 mg/dL (30.0-125.0) H Urine Protein/Creatinine Ratio 0.33 Urine Sodium < 10 mmol/L (40-220) L Urine Glucose Normal mg/dL (Normal) Urine Total Protein 56.8 mg/dL (1-14) H Microbiology Microbiology Date/Time Source Procedure Growth Status 01/31/25 18:25 Voided Urine Urine Culture - Final Complete 01/30/25 14:38 Blood Blood Culture - Final NO GROWTH AFTER 5 DAYS OF INCUBATION. Complete Labs and/or images reviewed: Labs reviewed by me, Image(s) reviewed by me Assessment/Plan Assessment/Plan Septic shock with hypotension altered mental status elevated white count secondary to urinary tract infection Acute urinary tract infection: Blood cultures negative, urine cultures negative, continue Rocephin Hypotension secondary to septic shock: IV fluids Hypertension: Hold blood pressure medication as the patient now has sepsis Hypothyroidism History of recurrent urinary tract infections Moderate malnutrition SOHAIL on CKD consult by Nephrology appreciated History of cholecystectomy appendectomy hysterectomy colectomy for colon cancer gastric ulcer surgery Vaginal prolapse 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 Pepper appreciated echocardiogram shows RV dysfunction started on Lovenox amiodarone drip Time spent 50 minutes Advanced care planning time 20 minutes Patient is full code Daughter Gayatri [phone] at bedside Recently treated at [place] for sepsis secondary to urinary tract infection discharged home on cefdinir and Keflex Plan discussed with: Patient Date of Service: Feb 06, 2025 Billing Provider: SUHAIL CARLIN MD Common Visit Codes: [id number] INP/OBS CARE(HIGH) SUHAIL CARLIN MD Feb 06, 2025 12:04
[2025-02-06 15:07] LABS: Base Excess -7.6 mmol/L (-2.0-3.0)
[2025-02-06] MEDS: BUMETANIDE INJECTION 12.5 MG in GIVE UN-DILUTED 0 ML IV SCH (16:43)
[2025-02-06] MEDS: MIDODRINE HCL 10 MG TAB PO SCH (18:06)
[2025-02-07] VITALS (10 sets, daily range): BP systolic 106–153; BP diastolic 45–85; PULSE 71–85; RESP 16–20; TEMP 97.3–98.3; O2SAT 90–96
[2025-02-07 07:50] LABS: Alanine Aminotransferase 21 U/L (7-40); Alkaline Phosphatase 116 U/L (46-116); Anion Gap 15 (5-15); BUN/Creatinine Ratio 13.0 (10.0-20.0); Bilirubin, Total 0.7 mg/dL (0.2-1.0); Calcium 9.4 mg/dL (8.7-10.4); Glucose 74 mg/dL (74-106); Potassium 3.6 mmol/L (3.5-5.1); Sodium 142 mmol/L (136-145); Total Protein 6.4 g/dL (5.7-8.2)
[2025-02-07 07:52] LABS: Albumin 3.0 g/dL (3.2-4.8); Blood Urea Nitrogen 32 mg/dL (9-23); Carbon Dioxide 17 mmol/L (20-31); Chloride 110 mmol/L (98-107)
--- NOTE | 2025-02-07 10:59 | DVHPN2 ---
Reviewed: Care Plan, H&P, Labs, Medications, Previous Orders, Radiology Changes from previous H/P or p: No Changes Objective Vitals Vital Signs Date Time Temp Pulse Resp B/P (MAP) Pulse Ox O2 Delivery O2 Flow Rate FiO2 02/07/25 10:00 82 153/85 02/07/25 09:00 98.3 20 96 98.3 02/07/25 08:06 Nasal Cannula* 3 32 Intake/Output Intake and Output 02/07/25 07:00 Intake Total 1850 ml Output Total 1450 ml Balance 400 ml Intake Oral 1550 ml IV Total 300 ml Output Urine Total 1450 ml # Voids 3 # Bowel Movements 2 Medications Current Medications Medications Dose Ordered Sig/David Route Start Time Stop Time Status Last Admin Dose Admin Pantoprazole Sodium 40 mg DAILY IV 01/31/25 10:00 02/07/25 09:29 40 MG Ondansetron HCl 4 mg Q4HP PRN IV 01/30/25 17:30 02/04/25 14:03 4 MG Acetaminophen 650 mg Q6HP PRN PO 01/30/25 17:30 Nitroglycerin 0.4 mg Q5MINP PRN SL 01/30/25 17:30 Morphine Sulfate 2 mg Q30M PRN IV 01/30/25 18:00 Acetaminophen/ Hydrocodone Bitart 1 tab Q8HPRN PRN PO 01/30/25 20:45 02/04/25 09:25 1 TAB Acetaminophen/ Hydrocodone Bitart 1 tab Q6HR PO 02/03/25 00:00 02/07/25 06:10 1 TAB Metoprolol Succinate 50 mg DAILY PO 02/03/25 11:45 02/06/25 09:28 50 MG Levalbuterol HCl 0.625 mg Q4HPRN PRN NEB 02/03/25 13:15 02/06/25 19:03 0.625 MG Enoxaparin Sodium 70 mg DAILY SC 02/04/25 10:00 02/07/25 09:30 70 MG Azithromycin 250 ml @ 125 mls/hr DAILY IV 02/05/25 10:00 02/07/25 10:40 125 MLS/HR Calcitriol 0.25 mcg DAILY PO 02/04/25 12:15 02/07/25 09:30 0.25 MCG Ceftriaxone Sodium 50 ml @ 100 mls/hr DAILY@09 IV 02/05/25 09:00 02/07/25 09:07 100 MLS/HR Amiodarone HCl 200 mg Q12HR PO 02/04/25 22:00 02/07/25 09:30 200 MG Sodium Bicarbonate 650 mg TID PO 02/05/25 14:00 02/07/25 06:09 650 MG Bumetanide 12.5 mg/Miscellaneous 50 ml @ 2 mls/hr Q24H IV 02/06/25 10:45 02/06/25 16:43 2 MLS/HR Midodrine 10 mg TID@0600,1200,1800 PO 02/06/25 18:00 02/06/25 18:06 10 MG Laboratory Results Laboratory Tests 02/03/25 13:29 02/07/25 06:24 Chemistry Test 02/07/25 06:24 Albumin 3.0 g/dL (3.2-4.8) L Calcium Level 9.4 mg/dL (8.7-10.4) Total Protein 6.4 g/dL (5.7-8.2) LFT Test 02/07/25 06:24 Alanine Aminotransferase (ALT) 21 U/L (7-40) Alkaline Phosphatase 116 U/L (46-116) Aspartate Amino Transferase (AST) 31 U/L (13-40) Total Bilirubin 0.7 mg/dL (0.2-1.0) Urinalysis Test 02/04/25 03:15 Urine Color Yellow (Yellow) Urine Clarity Turbid (Clear) H Urine pH 5.5 (5.0-9.0) Urine Specific [place] 1.021 (1.001-1.035) Urine Protein Trace (Negative) H Urine Ketones Negative (Negative) Urine Blood Negative /uL (Negative) Urine Nitrite Negative (Negative) Urine Bilirubin Negative (Negative) Urine Urobilinogen Normal mg/dL (Negative) Urine Leukocyte Esterase 1+ /uL (Negative) Urine RBC 11 /hpf (0 - 4) Urine Microscopic WBC 15 /HPF (0-5) H Urine Squamous Epithelial Cells Few /hpf (<5) Urine Bacteria Few /hpf (None Seen) H Urine Hyaline Casts Few /lpf (0 - 2) Urine Mucus Few (None Seen) Urine Yeast (Budding) Loaded /hpf (None Seen) Urine Creatinine 172.94 mg/dL (30.0-125.0) H Urine Protein/Creatinine Ratio 0.33 Urine Sodium < 10 mmol/L (40-220) L Urine Glucose Normal mg/dL (Normal) Urine Total Protein 56.8 mg/dL (1-14) H Blood Gas Results Test 02/06/25 15:00 Arterial Blood pH 7.356 (7.350-7.450) FiO2 % 32.0 Microbiology Microbiology Date/Time Source Procedure Growth Status 01/31/25 18:25 Voided Urine Urine Culture - Final Complete 01/30/25 14:38 Blood Blood Culture - Final NO GROWTH AFTER 5 DAYS OF INCUBATION. Complete Labs and/or images reviewed: Labs reviewed by me, Image(s) reviewed by me Assessment/Plan Assessment/Plan Septic shock with hypotension altered mental status elevated white count secondary to urinary tract infection Acute urinary tract infection: Blood cultures negative, urine cultures negative, continue Rocephin Hypotension secondary to septic shock: IV fluids Hypertension: Hold blood pressure medication as the patient now has sepsis Hypothyroidism History of recurrent urinary tract infections Moderate malnutrition SOHAIL on CKD consult by Nephrology appreciated History of cholecystectomy appendectomy hysterectomy colectomy for colon cancer gastric ulcer surgery 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 Pepper appreciated echocardiogram shows RV dysfunction started on Lovenox amiodarone drip Time spent 50 minutes Advanced care planning time 20 minutes Patient is full code Daughter Gayatri [phone] at bedside Recently treated at [place] for sepsis secondary to urinary tract infection discharged home on cefdinir and Keflex Plan discussed with: Patient My Orders Orders - SUHAIL CARLIN MD Procedure Category Date Status Time Incentive Spirometry ORDERS 02/06/25 Transmitted 12:04 Communication Order ORDERS 02/06/25 Transmitted 12:04 Date of Service: Feb 07, 2025 Billing Provider: SUHAIL CARLIN MD Common Visit Codes: [id number] INP/OBS CARE(HIGH) SUHAIL CARLIN MD Feb 07, 2025 10:59
--- NOTE | 2025-02-07 11:17 | DVHPN2 ---
Progress Note Date Seen: Feb 07, 2025 Medical Necessity Reason Pt with a Central, PICC or Fol: No Subjective Patient reports: No new complaints Other Systems: Patient seen and examined by myself today in follow-up Objective vital signs Vital Sign Date Time Temp Pulse Resp B/P (MAP) Pulse Ox O2 Delivery O2 Flow Rate FiO2 02/07/25 10:00 82 153/85 02/07/25 09:00 98.3 20 96 98.3 02/07/25 08:06 Nasal Cannula* 3 32 Total Intake and Output 02/06/25 02/06/25 02/07/25 15:00 23:00 07:00 Intake Total 300 ml 750 ml 800 ml Output Total 1450 ml Balance 300 ml 750 ml -650 ml medications Current Medications Medications Dose Ordered Sig/David Route Start Time Stop Time Status Last Admin Dose Admin Pantoprazole Sodium 40 mg DAILY IV 01/31/25 10:00 02/07/25 09:29 40 MG Ondansetron HCl 4 mg Q4HP PRN IV 01/30/25 17:30 02/04/25 14:03 4 MG Acetaminophen 650 mg Q6HP PRN PO 01/30/25 17:30 Nitroglycerin 0.4 mg Q5MINP PRN SL 01/30/25 17:30 Morphine Sulfate 2 mg Q30M PRN IV 01/30/25 18:00 Acetaminophen/ Hydrocodone Bitart 1 tab Q8HPRN PRN PO 01/30/25 20:45 02/04/25 09:25 1 TAB Acetaminophen/ Hydrocodone Bitart 1 tab Q6HR PO 02/03/25 00:00 02/07/25 06:10 1 TAB Metoprolol Succinate 50 mg DAILY PO 02/03/25 11:45 02/06/25 09:28 50 MG Levalbuterol HCl 0.625 mg Q4HPRN PRN NEB 02/03/25 13:15 02/06/25 19:03 0.625 MG Enoxaparin Sodium 70 mg DAILY SC 02/04/25 10:00 02/07/25 09:30 70 MG Azithromycin 250 ml @ 125 mls/hr DAILY IV 02/05/25 10:00 02/07/25 10:40 125 MLS/HR Calcitriol 0.25 mcg DAILY PO 02/04/25 12:15 02/07/25 09:30 0.25 MCG Ceftriaxone Sodium 50 ml @ 100 mls/hr DAILY@09 IV 02/05/25 09:00 02/07/25 09:07 100 MLS/HR Amiodarone HCl 200 mg Q12HR PO 02/04/25 22:00 02/07/25 09:30 200 MG Sodium Bicarbonate 650 mg TID PO 02/05/25 14:00 02/07/25 06:09 650 MG Bumetanide 12.5 mg/Miscellaneous 50 ml @ 2 mls/hr Q24H IV 02/06/25 10:45 02/06/25 16:43 2 MLS/HR Midodrine 10 mg TID@0600,1200,1800 PO 02/06/25 18:00 02/06/25 18:06 10 MG Examination: LUNGS:Normal, CVS:Normal, MSK:Normal laboratory and microbiology Laboratory Tests 02/07/25 06:24 02/03/25 13:29 Test 02/07/25 06:24 Range/Units Serum Glucose 74 74-106 mg/dL Microbiology Date/Time Source Procedure Growth Status 01/31/25 18:25 Voided Urine Urine Culture - Final Complete 01/30/25 14:38 Blood Blood Culture - Final NO GROWTH AFTER 5 DAYS OF INCUBATION. Complete Problem List/Assessment/Plan Problem List/Assessment/Plan Acute kidney injury superimposed Chronic Kidney Disease stage IV secondary hemodynamic mediated, feNa < 1% Acute respiratory failure, high flow oxygen Congestive heart failure exacerbation AFib with RVR Sepsis Pneumonia Metabolic acidosis Secondary hyperparathyroidism Recommendations Kidney function slightly improving Increased urine output Strict I&O's kidney ultrasound reported bilateral echogenic kidneys, no hydronephrosis IV antibiotic Discontinue IV fluid Continue Bumex 0.5 mg/hr IV Calcitriol 0.25 mcg p.o. q.day Sodium bicarbonate tablets KCL IV piggyback IV pressors for blood pressure support We will continue to follow Total care time 25 minutes Plan discussed with: Patient My Orders My Orders Orders - JULIET BYERS MD Procedure Category Date Status Time Abg W/ Co-Ox RT 02/06/25 Logged 10:35 Midodrine Tablet PHA 02/06/25 In Process (Proamatine Tablet) 18:00 Dietary Evaluation Review Recommendations by RD: Protein Supplementation Comments: 1) Initiate Ensure High Protein qd 2) Add 2g Na restriction to diet 3) Encourage optimal PO intake 4) Follow-up with cardiology and urology 5) Continue to monitor I&O, labs, and skin integrity Expected Outcomes/Goals: 1) appetite and labs to improve 2) f/u in 3-5 days JULIET BYERS MD Feb 07, 2025 11:17
[2025-02-07] MEDS: POTASSIUM CHL 20MEQ/100ML 100 ML IV SCH (13:16)
[2025-02-08] VITALS (10 sets, daily range): BP systolic 102–142; BP diastolic 69–82; PULSE 54–81; RESP 16–20; TEMP 97.5–98.5; O2SAT 90–98
[2025-02-08 06:29] LABS: Alanine Aminotransferase 20 U/L (7-40); Albumin 3.3 g/dL (3.2-4.8); Anion Gap 14 (5-15); BUN/Creatinine Ratio 16.7 (10.0-20.0); Bilirubin, Total 0.9 mg/dL (0.2-1.0); Calcium 9.9 mg/dL (8.7-10.4); Carbon Dioxide 24 mmol/L (20-31); Chloride 103 mmol/L (98-107); Glucose 86 mg/dL (74-106); Sodium 141 mmol/L (136-145); Total Protein 6.9 g/dL (5.7-8.2)
[2025-02-08 06:35] LABS: Alkaline Phosphatase 116 U/L (46-116); Blood Urea Nitrogen 38 mg/dL (9-23); Potassium 3.3 mmol/L (3.5-5.1)
--- NOTE | 2025-02-08 11:00 | DVHPN2 ---
Progress Note Date Seen: Feb 08, 2025 Medical Necessity Reason Pt with a Central, PICC or Fol: No Subjective Patient reports: No new complaints Other Systems: Patient seen and examined by myself today in follow-up Objective vital signs Vital Sign Date Time Temp Pulse Resp B/P (MAP) Pulse Ox O2 Delivery O2 Flow Rate FiO2 02/08/25 10:51 129/77 02/08/25 10:00 71 02/08/25 09:00 97.9 20 90 97.9 02/08/25 05:50 Nasal Cannula 2.0 02/08/25 05:50 28 Total Intake and Output 02/07/25 02/07/25 02/08/25 14:59 22:59 06:59 Intake Total 544 ml 968 ml 944 ml Output Total 2500 ml 4000 ml Balance 544 ml -1532 ml -3056 ml medications Current Medications Medications Dose Ordered Sig/David Route Start Time Stop Time Status Last Admin Dose Admin Pantoprazole Sodium 40 mg DAILY IV 01/31/25 10:00 02/08/25 10:01 40 MG Ondansetron HCl 4 mg Q4HP PRN IV 01/30/25 17:30 02/04/25 14:03 4 MG Acetaminophen 650 mg Q6HP PRN PO 01/30/25 17:30 Nitroglycerin 0.4 mg Q5MINP PRN SL 01/30/25 17:30 Morphine Sulfate 2 mg Q30M PRN IV 01/30/25 18:00 Acetaminophen/ Hydrocodone Bitart 1 tab Q8HPRN PRN PO 01/30/25 20:45 02/07/25 14:46 1 TAB Acetaminophen/ Hydrocodone Bitart 1 tab Q6HR PO 02/03/25 00:00 02/07/25 23:04 1 TAB Metoprolol Succinate 50 mg DAILY PO 02/03/25 11:45 02/06/25 09:28 50 MG Levalbuterol HCl 0.625 mg Q4HPRN PRN NEB 02/03/25 13:15 02/06/25 19:03 0.625 MG Enoxaparin Sodium 70 mg DAILY SC 02/04/25 10:00 02/08/25 10:00 70 MG Azithromycin 250 ml @ 125 mls/hr DAILY IV 02/05/25 10:00 02/07/25 10:40 125 MLS/HR Calcitriol 0.25 mcg DAILY PO 02/04/25 12:15 02/08/25 10:00 0.25 MCG Ceftriaxone Sodium 50 ml @ 100 mls/hr DAILY@09 IV 02/05/25 09:00 02/08/25 10:00 100 MLS/HR Amiodarone HCl 200 mg Q12HR PO 02/04/25 22:00 02/08/25 10:00 200 MG Sodium Bicarbonate 650 mg TID PO 02/05/25 14:00 02/08/25 05:17 650 MG Bumetanide 12.5 mg/Miscellaneous 50 ml @ 2 mls/hr Q24H IV 02/06/25 10:45 02/08/25 10:51 2 MLS/HR Midodrine 10 mg TID@0600,1200,1800 PO 02/06/25 18:00 02/08/25 05:17 10 MG Examination: LUNGS:Normal, CVS:Normal, MSK:Normal laboratory and microbiology Laboratory Tests 02/08/25 05:44 02/03/25 13:29 Test 02/08/25 05:44 Range/Units Serum Glucose 86 74-106 mg/dL Microbiology Date/Time Source Procedure Growth Status 01/31/25 18:25 Voided Urine Urine Culture - Final Complete 01/30/25 14:38 Blood Blood Culture - Final NO GROWTH AFTER 5 DAYS OF INCUBATION. Complete Problem List/Assessment/Plan Problem List/Assessment/Plan Acute kidney injury superimposed Chronic Kidney Disease stage IV secondary hemodynamic mediated, feNa < 1% Acute respiratory failure, high flow oxygen Congestive heart failure exacerbation AFib with RVR Sepsis Pneumonia Metabolic acidosis Secondary hyperparathyroidism Recommendations Kidney function slightly improving Increased urine output Strict I&O's kidney ultrasound reported bilateral echogenic kidneys, no hydronephrosis IV antibiotic Discontinue IV fluid Continue Bumex 0.5 mg/hr IV Calcitriol 0.25 mcg p.o. q.day KCL replacement Sodium bicarbonate tablets KCL IV piggyback IV pressors for blood pressure support We will continue to follow Total care time 25 minutes Plan discussed with: Patient My Orders My Orders Orders - JULIET BYERS MD Procedure Category Date Status Time Potassium Chl Jose PHA 02/08/25 Verified KCL 11:00 Dietary Evaluation Review Recommendations by RD: Protein Supplementation Comments: 1) Initiate Ensure High Protein qd 2) Add 2g Na restriction to diet 3) Encourage optimal PO intake 4) Follow-up with cardiology and urology 5) Continue to monitor I&O, labs, and skin integrity Expected Outcomes/Goals: 1) appetite and labs to improve 2) f/u in 3-5 days JULIET BYERS MD Feb 08, 2025 11:00
--- NOTE | 2025-02-08 11:55 | DVHPN2 ---
Reviewed: Care Plan, H&P, Labs, Medications, Previous Orders, Radiology Changes from previous H/P or p: No Changes Objective Vitals Vital Signs Date Time Temp Pulse Resp B/P (MAP) Pulse Ox O2 Delivery O2 Flow Rate FiO2 02/08/25 10:51 129/77 02/08/25 10:00 71 02/08/25 09:00 97.9 20 90 97.9 02/08/25 08:00 Nasal Cannula* 5 40 Intake/Output Intake and Output 02/08/25 07:00 Intake Total 2456 ml Output Total 6500 ml Balance -4044 ml Intake Oral 2132 ml IV Total 324 ml Output Urine Total 6500 ml # Bowel Movements 1 Medications Current Medications Medications Dose Ordered Sig/David Route Start Time Stop Time Status Last Admin Dose Admin Pantoprazole Sodium 40 mg DAILY IV 01/31/25 10:00 02/08/25 11:41 40 MG Ondansetron HCl 4 mg Q4HP PRN IV 01/30/25 17:30 02/04/25 14:03 4 MG Acetaminophen 650 mg Q6HP PRN PO 01/30/25 17:30 Nitroglycerin 0.4 mg Q5MINP PRN SL 01/30/25 17:30 Morphine Sulfate 2 mg Q30M PRN IV 01/30/25 18:00 Acetaminophen/ Hydrocodone Bitart 1 tab Q8HPRN PRN PO 01/30/25 20:45 02/07/25 14:46 1 TAB Acetaminophen/ Hydrocodone Bitart 1 tab Q6HR PO 02/03/25 00:00 02/07/25 23:04 1 TAB Metoprolol Succinate 50 mg DAILY PO 02/03/25 11:45 02/06/25 09:28 50 MG Levalbuterol HCl 0.625 mg Q4HPRN PRN NEB 02/03/25 13:15 02/06/25 19:03 0.625 MG Enoxaparin Sodium 70 mg DAILY SC 02/04/25 10:00 02/08/25 10:00 70 MG Azithromycin 250 ml @ 125 mls/hr DAILY IV 02/05/25 10:00 02/07/25 10:40 125 MLS/HR Calcitriol 0.25 mcg DAILY PO 02/04/25 12:15 02/08/25 10:00 0.25 MCG Ceftriaxone Sodium 50 ml @ 100 mls/hr DAILY@09 IV 02/05/25 09:00 02/08/25 11:42 100 MLS/HR Amiodarone HCl 200 mg Q12HR PO 02/04/25 22:00 02/08/25 10:00 200 MG Sodium Bicarbonate 650 mg TID PO 02/05/25 14:00 02/08/25 05:17 650 MG Bumetanide 12.5 mg/Miscellaneous 50 ml @ 2 mls/hr Q24H IV 02/06/25 10:45 02/08/25 10:51 2 MLS/HR Midodrine 10 mg TID@0600,1200,1800 PO 02/06/25 18:00 02/08/25 05:17 10 MG Potassium Chloride 100 ml @ 50 mls/hr Q2H IV 02/08/25 11:00 02/08/25 16:59 Laboratory Results Laboratory Tests 02/03/25 13:29 02/08/25 05:44 Chemistry Test 02/08/25 05:44 Albumin 3.3 g/dL (3.2-4.8) Calcium Level 9.9 mg/dL (8.7-10.4) Total Protein 6.9 g/dL (5.7-8.2) Cardiac Markers Test 02/08/25 05:44 B-Type Natriuretic Peptide Pending LFT Test 02/08/25 05:44 Alanine Aminotransferase (ALT) 20 U/L (7-40) Alkaline Phosphatase 116 U/L (46-116) Aspartate Amino Transferase (AST) 29 U/L (13-40) Total Bilirubin 0.9 mg/dL (0.2-1.0) Urinalysis Test 02/04/25 03:15 Urine Color Yellow (Yellow) Urine Clarity Turbid (Clear) H Urine pH 5.5 (5.0-9.0) Urine Specific [place] 1.021 (1.001-1.035) Urine Protein Trace (Negative) H Urine Ketones Negative (Negative) Urine Blood Negative /uL (Negative) Urine Nitrite Negative (Negative) Urine Bilirubin Negative (Negative) Urine Urobilinogen Normal mg/dL (Negative) Urine Leukocyte Esterase 1+ /uL (Negative) Urine RBC 11 /hpf (0 - 4) Urine Microscopic WBC 15 /HPF (0-5) H Urine Squamous Epithelial Cells Few /hpf (<5) Urine Bacteria Few /hpf (None Seen) H Urine Hyaline Casts Few /lpf (0 - 2) Urine Mucus Few (None Seen) Urine Yeast (Budding) Loaded /hpf (None Seen) Urine Creatinine 172.94 mg/dL (30.0-125.0) H Urine Protein/Creatinine Ratio 0.33 Urine Sodium < 10 mmol/L (40-220) L Urine Glucose Normal mg/dL (Normal) Urine Total Protein 56.8 mg/dL (1-14) H Microbiology Microbiology Date/Time Source Procedure Growth Status 01/31/25 18:25 Voided Urine Urine Culture - Final Complete 01/30/25 14:38 Blood Blood Culture - Final NO GROWTH AFTER 5 DAYS OF INCUBATION. Complete Labs and/or images reviewed: Labs reviewed by me, Image(s) reviewed by me Assessment/Plan Assessment/Plan Septic shock with hypotension altered mental status elevated white count secondary to urinary tract infection Acute urinary tract infection: Blood cultures negative, urine cultures negative, continue Rocephin Hypotension secondary to septic shock: IV fluids Hypertension: Hold blood pressure medication as the patient now has sepsis Hypothyroidism History of recurrent urinary tract infections Moderate malnutrition SOHAIL on CKD consult by Nephrology appreciated, continue Bumex drip History of cholecystectomy appendectomy hysterectomy colectomy for colon cancer gastric ulcer surgery 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 Pepper appreciated echocardiogram shows RV dysfunction started on Lovenox amiodarone drip Time spent 50 minutes Advanced care planning time 20 minutes Patient is full code Daughter Gayatri [phone] at bedside Recently treated at [place] for sepsis secondary to urinary tract infection discharged home on cefdinir and Keflex Herpes simplex lips: Zovirax ointment Plan discussed with: Patient Date of Service: Feb 08, 2025 Billing Provider: SUHAIL CARLIN MD Common Visit Codes: [id number] INP/OBS CARE(HIGH) SUHAIL CARLIN MD Feb 08, 2025 11:55
--- NOTE | 2025-02-08 12:52 | DVH ---
CLINICAL HISTORY: chf TECHNIQUE: Single view of the chest was obtained. COMPARISON: XY CHEST XRAY 1 VIEW on DOS: 02/02/25, XY CHEST PORTABLE on DOS: 01/30/25 FINDINGS: The heart size is top-normal and the pulmonary vasculature appears normal. There is increasing right mid and lower lung opacification. There are thoracic spine epidural pain catheter leads. IMPRESSION: Increasing right mid and lower lung opacification, likely worsening pleural effusion and atelectasis. A superimposed process is not excluded.
[2025-02-08] MEDS: POTASSIUM CHL 20MEQ/100ML 100 ML IV SCH (15:11)
[2025-02-09] VITALS (11 sets, daily range): BP systolic 118–142; BP diastolic 60–80; PULSE 52–80; RESP 14–20; TEMP 97.5–98; O2SAT 91–98
--- NOTE | 2025-02-09 11:00 | DVHPN2 ---
Progress Note Date Seen: Feb 09, 2025 Medical Necessity Reason Pt with a Central, PICC or Fol: No Subjective Review of Systems: RESPIRATORY:Abnormal Other Systems: Patient seen and examined by myself today in follow-up Objective vital signs Vital Sign Date Time Temp Pulse Resp B/P (MAP) Pulse Ox O2 Delivery O2 Flow Rate FiO2 02/09/25 10:23 134/67 02/09/25 09:32 57 02/09/25 08:52 98.0 18 96 98.0 02/09/25 06:35 Nasal Cannula* 3 32 Total Intake and Output 02/08/25 02/08/25 02/09/25 15:00 23:00 07:00 Intake Total 1800 ml 1600 ml Output Total 1650 ml 1350 ml Balance 150 ml 250 ml medications Current Medications Medications Dose Ordered Sig/David Route Start Time Stop Time Status Last Admin Dose Admin Pantoprazole Sodium 40 mg DAILY IV 01/31/25 10:00 02/09/25 09:16 40 MG Ondansetron HCl 4 mg Q4HP PRN IV 01/30/25 17:30 02/04/25 14:03 4 MG Acetaminophen 650 mg Q6HP PRN PO 01/30/25 17:30 Nitroglycerin 0.4 mg Q5MINP PRN SL 01/30/25 17:30 Morphine Sulfate 2 mg Q30M PRN IV 01/30/25 18:00 Acetaminophen/ Hydrocodone Bitart 1 tab Q8HPRN PRN PO 01/30/25 20:45 02/07/25 14:46 1 TAB Acetaminophen/ Hydrocodone Bitart 1 tab Q6HR PO 02/03/25 00:00 02/09/25 00:35 1 TAB Metoprolol Succinate 50 mg DAILY PO 02/03/25 11:45 02/06/25 09:28 50 MG Levalbuterol HCl 0.625 mg Q4HPRN PRN NEB 02/03/25 13:15 02/06/25 19:03 0.625 MG Enoxaparin Sodium 70 mg DAILY SC 02/04/25 10:00 02/09/25 09:26 70 MG Azithromycin 250 ml @ 125 mls/hr DAILY IV 02/05/25 10:00 02/09/25 10:17 125 MLS/HR Calcitriol 0.25 mcg DAILY PO 02/04/25 12:15 02/09/25 09:20 0.25 MCG Ceftriaxone Sodium 50 ml @ 100 mls/hr DAILY@09 IV 02/05/25 09:00 02/09/25 09:17 100 MLS/HR Amiodarone HCl 200 mg Q12HR PO 02/04/25 22:00 02/09/25 09:18 200 MG Sodium Bicarbonate 650 mg TID PO 02/05/25 14:00 02/08/25 05:17 650 MG Bumetanide 12.5 mg/Miscellaneous 50 ml @ 2 mls/hr Q24H IV 02/06/25 10:45 02/09/25 10:23 2 MLS/HR Midodrine 10 mg TID@0600,1200,1800 PO 02/06/25 18:00 02/08/25 05:17 10 MG Examination: LUNGS:Normal, CVS:Normal, MSK:Normal laboratory and microbiology Laboratory Tests 02/09/25 04:43 02/08/25 05:44 02/03/25 13:29 Test 02/08/25 05:44 Range/Units Serum Glucose 86 74-106 mg/dL Microbiology Date/Time Source Procedure Growth Status 01/31/25 18:25 Voided Urine Urine Culture - Final Complete 01/30/25 14:38 Blood Blood Culture - Final NO GROWTH AFTER 5 DAYS OF INCUBATION. Complete Problem List/Assessment/Plan Problem List/Assessment/Plan Acute kidney injury superimposed Chronic Kidney Disease stage IV secondary hemodynamic mediated, feNa < 1% Acute respiratory failure, high flow oxygen Congestive heart failure exacerbation AFib with RVR Sepsis Pneumonia Metabolic acidosis Hypokalemia Secondary hyperparathyroidism Recommendations Kidney function continues to improve Increased urine output Strict I&O's kidney ultrasound reported bilateral echogenic kidneys, no hydronephrosis IV antibiotic Discontinue IV fluid Continue Bumex 0.5 mg/hr IV Calcitriol 0.25 mcg p.o. q.day KCL replacement Sodium bicarbonate tablets KCL IV piggyback IV pressors for blood pressure support We will continue to follow Total care time 25 minutes Plan discussed with: Patient My Orders My Orders Orders - JULIET BYERS MD Procedure Category Date Status Time Chest Portable XY 02/08/25 Resulted 11:00 Dietary Evaluation Review Recommendations by RD: Protein Supplementation Comments: 1) Initiate Ensure High Protein qd 2) Add 2g Na restriction to diet 3) Encourage optimal PO intake 4) Follow-up with cardiology and urology 5) Continue to monitor I&O, labs, and skin integrity Expected Outcomes/Goals: 1) appetite and labs to improve 2) f/u in 3-5 days JULIET BYERS MD Feb 09, 2025 11:00
--- NOTE | 2025-02-09 12:23 | DVHPN2 ---
Reviewed: Care Plan, H&P, Labs, Medications, Previous Orders, Radiology Changes from previous H/P or p: No Changes Objective Vitals Vital Signs Date Time Temp Pulse Resp B/P (MAP) Pulse Ox O2 Delivery O2 Flow Rate FiO2 02/09/25 10:23 134/67 02/09/25 09:32 57 02/09/25 08:52 98.0 18 96 98.0 02/09/25 06:35 Nasal Cannula* 3 32 Intake/Output Intake and Output 02/09/25 07:00 Intake Total 3764 ml Output Total 3000 ml Balance 764 ml Intake Oral 3400 ml IV Total 364 ml Output Urine Total 3000 ml # Bowel Movements 1 Medications Current Medications Medications Dose Ordered Sig/David Route Start Time Stop Time Status Last Admin Dose Admin Pantoprazole Sodium 40 mg DAILY IV 01/31/25 10:00 02/09/25 09:16 40 MG Ondansetron HCl 4 mg Q4HP PRN IV 01/30/25 17:30 02/04/25 14:03 4 MG Acetaminophen 650 mg Q6HP PRN PO 01/30/25 17:30 Nitroglycerin 0.4 mg Q5MINP PRN SL 01/30/25 17:30 Morphine Sulfate 2 mg Q30M PRN IV 01/30/25 18:00 Acetaminophen/ Hydrocodone Bitart 1 tab Q8HPRN PRN PO 01/30/25 20:45 02/07/25 14:46 1 TAB Acetaminophen/ Hydrocodone Bitart 1 tab Q6HR PO 02/03/25 00:00 02/09/25 00:35 1 TAB Metoprolol Succinate 50 mg DAILY PO 02/03/25 11:45 02/06/25 09:28 50 MG Levalbuterol HCl 0.625 mg Q4HPRN PRN NEB 02/03/25 13:15 02/06/25 19:03 0.625 MG Azithromycin 250 ml @ 125 mls/hr DAILY IV 02/05/25 10:00 02/09/25 10:17 125 MLS/HR Calcitriol 0.25 mcg DAILY PO 02/04/25 12:15 02/09/25 09:20 0.25 MCG Ceftriaxone Sodium 50 ml @ 100 mls/hr DAILY@09 IV 02/05/25 09:00 02/09/25 09:17 100 MLS/HR Amiodarone HCl 200 mg Q12HR PO 02/04/25 22:00 02/09/25 09:18 200 MG Sodium Bicarbonate 650 mg TID PO 02/05/25 14:00 02/08/25 05:17 650 MG Bumetanide 12.5 mg/Miscellaneous 50 ml @ 2 mls/hr Q24H IV 02/06/25 10:45 02/09/25 10:23 2 MLS/HR Midodrine 10 mg TID@0600,1200,1800 PO 02/06/25 18:00 02/08/25 05:17 10 MG Enoxaparin Sodium 80 mg DAILY SC 02/10/25 10:00 Laboratory Results Laboratory Tests 02/03/25 13:29 02/08/25 05:44 02/09/25 04:43 Urinalysis Test 02/04/25 03:15 Urine Color Yellow (Yellow) Urine Clarity Turbid (Clear) H Urine pH 5.5 (5.0-9.0) Urine Specific [place] 1.021 (1.001-1.035) Urine Protein Trace (Negative) H Urine Ketones Negative (Negative) Urine Blood Negative /uL (Negative) Urine Nitrite Negative (Negative) Urine Bilirubin Negative (Negative) Urine Urobilinogen Normal mg/dL (Negative) Urine Leukocyte Esterase 1+ /uL (Negative) Urine RBC 11 /hpf (0 - 4) Urine Microscopic WBC 15 /HPF (0-5) H Urine Squamous Epithelial Cells Few /hpf (<5) Urine Bacteria Few /hpf (None Seen) H Urine Hyaline Casts Few /lpf (0 - 2) Urine Mucus Few (None Seen) Urine Yeast (Budding) Loaded /hpf (None Seen) Urine Creatinine 172.94 mg/dL (30.0-125.0) H Urine Protein/Creatinine Ratio 0.33 Urine Sodium < 10 mmol/L (40-220) L Urine Glucose Normal mg/dL (Normal) Urine Total Protein 56.8 mg/dL (1-14) H Microbiology Microbiology Date/Time Source Procedure Growth Status 01/31/25 18:25 Voided Urine Urine Culture - Final Complete 01/30/25 14:38 Blood Blood Culture - Final NO GROWTH AFTER 5 DAYS OF INCUBATION. Complete Labs and/or images reviewed: Labs reviewed by me, Image(s) reviewed by me Assessment/Plan Assessment/Plan Septic shock with hypotension altered mental status elevated white count secondary to urinary tract infection Acute urinary tract infection: Blood cultures negative, urine cultures negative, continue Rocephin Hypotension secondary to septic shock: IV fluids Hypertension: Hold blood pressure medication as the patient now has sepsis Hypothyroidism History of recurrent urinary tract infections Moderate malnutrition SOHAIL on CKD consult by Nephrology appreciated, continue Bumex drip History of cholecystectomy appendectomy hysterectomy colectomy for colon cancer gastric ulcer surgery 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 Pepper appreciated echocardiogram shows RV dysfunction started on Lovenox amiodarone drip Time spent 50 minutes Advanced care planning time 20 minutes Patient is full code Daughter Gayatri [phone] at bedside Recently treated at [place] for sepsis secondary to urinary tract infection discharged home on cefdinir and Keflex Herpes simplex lips: Zovirax ointment Repeat chest x-ray 02/08/2025 shows persistent pneumonia in the right side Right pleural effusion: Radiology consult for thoracentesis on Monday Plan discussed with: Patient Date of Service: Feb 09, 2025 Billing Provider: SUHAIL CARLIN MD Common Visit Codes: [id number] INP/OBS CARE(HIGH) SUHAIL CARLIN MD Feb 09, 2025 12:23
[2025-02-10] VITALS (7 sets, daily range): BP systolic 126–145; BP diastolic 70–76; PULSE 60–63; RESP 17–20; TEMP 98–98.6; O2SAT 91–99
[2025-02-10] MEDS: ENOXAPARIN SOD 80 MG/0.8ML SYRINGE SC SCH (09:26)
[2025-02-10 12:42] LABS: INR 1.2 (0.9-1.15); Partial Thromboplastin Time 35.9 SEC (24.5-34.5); Prothrombin Time 12.5 sec (9.3-11.8)
--- NOTE | 2025-02-10 13:17 | DVHPN2 ---
Reviewed: Care Plan, H&P, Labs, Medications, Previous Orders, Radiology Changes from previous H/P or p: No Changes Objective Vitals Vital Signs Date Time Temp Pulse Resp B/P (MAP) Pulse Ox O2 Delivery O2 Flow Rate FiO2 02/10/25 10:44 138/74 02/10/25 09:00 98.4 63 20 96 98.4 02/10/25 08:00 Nasal Cannula* 2 28 Intake/Output Intake and Output 02/10/25 07:00 Intake Total 1100 ml Output Total 2250 ml Balance -1150 ml Intake Oral 800 ml IV Total 300 ml Output Urine Total 2250 ml # Voids 2 # Bowel Movements 1 Medications Current Medications Medications Dose Ordered Sig/David Route Start Time Stop Time Status Last Admin Dose Admin Pantoprazole Sodium 40 mg DAILY IV 01/31/25 10:00 02/10/25 09:25 40 MG Ondansetron HCl 4 mg Q4HP PRN IV 01/30/25 17:30 02/04/25 14:03 4 MG Acetaminophen 650 mg Q6HP PRN PO 01/30/25 17:30 Nitroglycerin 0.4 mg Q5MINP PRN SL 01/30/25 17:30 Morphine Sulfate 2 mg Q30M PRN IV 01/30/25 18:00 Acetaminophen/ Hydrocodone Bitart 1 tab Q8HPRN PRN PO 01/30/25 20:45 02/07/25 14:46 1 TAB Acetaminophen/ Hydrocodone Bitart 1 tab Q6HR PO 02/03/25 00:00 02/10/25 00:37 1 TAB Metoprolol Succinate 50 mg DAILY PO 02/03/25 11:45 02/06/25 09:28 50 MG Azithromycin 250 ml @ 125 mls/hr DAILY IV 02/05/25 10:00 02/10/25 10:39 125 MLS/HR Calcitriol 0.25 mcg DAILY PO 02/04/25 12:15 02/10/25 09:26 0.25 MCG Ceftriaxone Sodium 50 ml @ 100 mls/hr DAILY@09 IV 02/05/25 09:00 02/10/25 09:25 100 MLS/HR Amiodarone HCl 200 mg Q12HR PO 02/04/25 22:00 02/10/25 09:25 200 MG Sodium Bicarbonate 650 mg TID PO 02/05/25 14:00 02/09/25 14:14 650 MG Bumetanide 12.5 mg/Miscellaneous 50 ml @ 2 mls/hr Q24H IV 02/06/25 10:45 02/10/25 10:44 2 MLS/HR Midodrine 10 mg TID@0600,1200,1800 PO 02/06/25 18:00 02/08/25 05:17 10 MG Enoxaparin Sodium 80 mg DAILY SC 02/10/25 10:00 02/10/25 09:26 80 MG Laboratory Results Laboratory Tests 02/03/25 13:29 02/08/25 05:44 02/09/25 04:43 Coagulation Test 02/10/25 11:57 Prothrombin Time 12.5 sec (9.3-11.8) H Prothrombin Time INR 1.20 (0.9-1.15) H Activated Partial Thromboplast Time 35.9 SEC (24.5-34.5) H Urinalysis Test 02/04/25 03:15 Urine Color Yellow (Yellow) Urine Clarity Turbid (Clear) H Urine pH 5.5 (5.0-9.0) Urine Specific [place] 1.021 (1.001-1.035) Urine Protein Trace (Negative) H Urine Ketones Negative (Negative) Urine Blood Negative /uL (Negative) Urine Nitrite Negative (Negative) Urine Bilirubin Negative (Negative) Urine Urobilinogen Normal mg/dL (Negative) Urine Leukocyte Esterase 1+ /uL (Negative) Urine RBC 11 /hpf (0 - 4) Urine Microscopic WBC 15 /HPF (0-5) H Urine Squamous Epithelial Cells Few /hpf (<5) Urine Bacteria Few /hpf (None Seen) H Urine Hyaline Casts Few /lpf (0 - 2) Urine Mucus Few (None Seen) Urine Yeast (Budding) Loaded /hpf (None Seen) Urine Creatinine 172.94 mg/dL (30.0-125.0) H Urine Protein/Creatinine Ratio 0.33 Urine Sodium < 10 mmol/L (40-220) L Urine Glucose Normal mg/dL (Normal) Urine Total Protein 56.8 mg/dL (1-14) H Microbiology Microbiology Date/Time Source Procedure Growth Status 01/31/25 18:25 Voided Urine Urine Culture - Final Complete 01/30/25 14:38 Blood Blood Culture - Final NO GROWTH AFTER 5 DAYS OF INCUBATION. Complete Labs and/or images reviewed: Labs reviewed by me, Image(s) reviewed by me Assessment/Plan Assessment/Plan Septic shock with hypotension altered mental status elevated white count secondary to urinary tract infection Acute urinary tract infection: Blood cultures negative, urine cultures negative, continue Rocephin Hypotension secondary to septic shock: IV fluids Hypertension: Hold blood pressure medication as the patient now has sepsis Hypothyroidism History of recurrent urinary tract infections Moderate malnutrition SOHAIL on CKD consult by Nephrology appreciated, treated with Bumex drip History of cholecystectomy appendectomy hysterectomy colectomy for colon cancer gastric ulcer surgery Vaginal prolapse 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 Pepper appreciated echocardiogram shows RV dysfunction started on Lovenox converted to Eliquis amiodarone drip Time spent 50 minutes Advanced care planning time 20 minutes Patient is full code Daughter Gayatri [phone] at bedside Recently treated at [facility] for sepsis secondary to urinary tract infection discharged home on cefdinir and Keflex Herpes simplex lips: Zovirax ointment Repeat chest x-ray 02/08/2025 shows persistent pneumonia in the right side Right pleural effusion: Radiology consult for thoracentesis , patient refused thoracentesis and requesting to be discharged home Plan discussed with: Patient My Orders Orders - SUHAIL CARLIN MD Procedure Category Date Status Time * Safety Engineer Pressure Vessels CONS 02/10/25 Transmitted Consult Home Health Nursing REFER 02/10/25 Transmitted 13:10 Date of Service: Feb 10, 2025 Billing Provider: SUHAIL CARLIN MD Common Visit Codes: [id number] INP/OBS CARE(HIGH) SUHAIL CARLIN MD Feb 10, 2025 13:16
--- NOTE | 2025-02-10 13:24 | DVHDS2 ---
Discharge Summary Date of Admission Jan 30, 2025 at 19:20 Date of Discharge: Feb 10, 2025 Admitting Diagnosis Shortness of breath Wounds: None Labs/Diagnostic Data: Laboratory Results Test 02/10/25 11:57 02/09/25 04:43 02/08/25 05:44 02/06/25 15:00 Prothrombin Time 12.5 sec (9.3-11.8) Prothrombin Time INR 1.20 (0.9-1.15) Activated Partial Thromboplast Time 35.9 SEC (24.5-34.5) Potassium Level 3.9 mmol/L (3.5-5.1) Sodium Level 141 mmol/L (136-145) Chloride Level 103 mmol/L (98-107) Carbon Dioxide Level 24 mmol/L (20-31) Anion Gap 14 (5-15) Blood Urea Nitrogen 38 mg/dL (9-23) Creatinine 2.27 mg/dL (0.550-1.02) Glomerular Filtration Rate Calc 22 mL/min (>90) BUN/Creatinine Ratio 16.7 (10.0-20.0) Serum Glucose 86 mg/dL (74-106) Calcium Level 9.9 mg/dL (8.7-10.4) Total Bilirubin 0.9 mg/dL (0.2-1.0) Aspartate Amino Transferase (AST) 29 U/L (13-40) Alanine Aminotransferase (ALT) 20 U/L (7-40) Alkaline Phosphatase 116 U/L (46-116) B-Type Natriuretic Peptide 726.47 pg/mL (0-100) Total Protein 6.9 g/dL (5.7-8.2) Albumin 3.3 g/dL (3.2-4.8) Blood Gas Specimen Type Arterial Blood Gas Sample Site Left brachial Blood Gas Patient Temperature 37.0 Arterial Blood Date Drawn [id number] Arterial Blood pH 7.356 (7.350-7.450) Arterial Blood Partial Pressure CO2 30.7 mmHg (32.0-45.0) Arterial Blood Partial Pressure O2 75.4 mmHg (83.0-108.0) Arterial Blood HCO3 16.8 mmol/L (21.0-28.0) Arterial Blood Oxygen Saturation 94.3 % (94.0-98.0) Arterial Blood Base Excess -7.6 mmol/L (-2.0-3.0) Arterial Blood Oxyhemoglobin 93.6 % (94.0-98.0) Arterial Blood Carboxyhemoglobin 0.4 % (0.5-1.5) Arterial Blood Methemoglobin 0.3 % (0.0-1.5) [place] Test N/a Blood Gas Total Hemoglobin 11.70 g/dL (12.0-16.0) Blood Gas Set Respiration Rate 20.0 Blood Gas Liter Flow 3.00 Blood Gas Modality Nasal cannula FiO2 % 32.0 Test 02/04/25 03:15 02/03/25 17:32 02/03/25 16:30 02/03/25 13:29 Urine Color Yellow (Yellow) Urine Clarity Turbid (Clear) Urine pH 5.5 (5.0-9.0) Urine Specific [place] 1.021 (1.001-1.035) Urine Protein Trace (Negative) Urine Ketones Negative (Negative) Urine Blood Negative /uL (Negative) Urine Nitrite Negative (Negative) Urine Bilirubin Negative (Negative) Urine Urobilinogen Normal mg/dL (Negative) Urine Leukocyte Esterase 1+ /uL (Negative) Urine RBC 11 /hpf (0 - 4) Urine Microscopic WBC 15 /HPF (0-5) Urine Squamous Epithelial Cells Few /hpf (<5) Urine Bacteria Few /hpf (None Seen) Urine Hyaline Casts Few /lpf (0 - 2) Urine Mucus Few (None Seen) Urine Yeast (Budding) Loaded /hpf (None Seen) Urine Creatinine 172.94 mg/dL (30.0-125.0) Urine Protein/Creatinine Ratio 0.33 Urine Sodium < 10 mmol/L (40-220) Urine Glucose Normal mg/dL (Normal) Urine Total Protein 56.8 mg/dL (1-14) Uric Acid 6.2 mg/dL (3.1-7.8) Phosphorus Level 3.5 mg/dL (2.4-5.1) Magnesium Level 1.9 mg/dL (1.6-2.6) Vitamin D 25-Hydroxy 32.7 ng/mL (30.0-100) Parathyroid Hormone (Intact) 189.7 pg/mL (18.4-80.1) Thyroid Stimulating Hormone (TSH) 0.24 uIU/mL (0.55-4.78) White Blood Count 17.4 10^3/uL (4.4-10.8) Red Blood Count 3.45 10^6/uL (4.0-5.20) Hemoglobin 11.7 g/dL (12.2-16.2) Hematocrit 34.9 % (36.0-46.0) Mean Corpuscular Volume 101.2 fL (80.0-100.0) Mean Corpuscular Hemoglobin 33.9 pg (28.0-32.0) Mean Corpuscular Hemoglobin Concent 33.5 g/dL (32.0-36.0) Red Cell Distribution Width 16.7 % (11.8-14.3) Platelet Count 209 10^3/uL (140-450) Mean Platelet Volume 9.4 fL (6.9-10.8) Neutrophils (%) (Auto) 88.3 % (37.0-80.0) Lymphocytes (%) (Auto) 4.4 % (10.0-50.0) Monocytes (%) (Auto) 5.7 % (0.0-12.0) Eosinophils (%) (Auto) 1.1 % (0.0-7.0) Basophils (%) (Auto) 0.5 % (0.0-2.0) Neutrophils # (Auto) 15.4 10 ^3/uL (1.6-8.6) Lymphocytes # (Auto) 0.8 10 ^3/uL (0.4-5.4) Monocytes # (Auto) 1.0 10 ^3/uL (0-1.3) Eosinophils # (Auto) 0.2 10 ^3/uL (0-0.8) Basophils # (Auto) 0.1 10 ^3/uL (0-0.2) Nucleated Red Blood Cells 0.0 % Test 02/03/25 08:41 01/30/25 16:35 Influenza Type A Antigen Negative (Negative) Influenza Type B Antigen Negative (Negative) SARS-CoV-2 Antigen (Rapid) Negative (NEGATIVE) Lactic Acid Level 1.2 mmol/L (0.4-2.0) Other Laboratory Tests 02/09/25 04:43 02/08/25 05:44 02/03/25 13:29 Brief Hx & Hospital Course: 85-year-old female with a complicated history of hypertension hypothyroidism recurrent urinary tract infections chronic kidney disease history of cholecystectomy appendectomy hysterectomy colectomy for colon cancer gastric ulcer surgery vaginal prolapse 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 Found to be in septic shock with a hypotension secondary to urinary tract infection treated with the Rocephin blood cultures came negative urine cultures also negative patient developed [place] AFib with RVR new onset seen by Cardiology Dr. Pepper placed on Lovenox converted to Eliquis. Patient also had SOHAIL on CKD seen by put on a Bumex drip with a which has improved patient has mild right pleural effusion patient does not want any thoracentesis. Right lower lobe pneumonia treated with the Rocephin and azithromycin which has been resolving Patient requesting to be discharged home. discharged home health. Medications transmitted to [facility] pharmacy Consults/Reason for consult Cardiology Dr. Pepper Nephrology Operations or Procedures CT abdomen pelvis without contrast Echocardiogram Condition at Discharge: Fair Final Diagnosis/Problems List Septic shock with hypotension altered mental status elevated white count secondary to urinary tract infection Acute urinary tract infection: Blood cultures negative, urine cultures negative, continue Rocephin Hypotension secondary to septic shock: IV fluids Hypertension: Hold blood pressure medication as the patient now has sepsis Hypothyroidism History of recurrent urinary tract infections Moderate malnutrition SOHAIL on CKD consult by Nephrology appreciated, treated with Bumex drip History of cholecystectomy appendectomy hysterectomy colectomy for colon cancer gastric ulcer surgery Vaginal prolapse 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 Pepper appreciated echocardiogram shows RV dysfunction started on Lovenox converted to Eliquis amiodarone drip Discharge Disposition: Home with Health Services Discharge Instruct/Medications Diet: Cardiac 2g Na,low cholest Activity: Light activity Follow Up/Referral: Follow up with primary Dr in one week Follow up with Cardiology Dr. Desai in two weeks Medications: sent to [facility] pharmacy Scheduled Hydrocodone-Acetaminophen (Hydrocodone Bitartrate/AC 10-325 mg), 1 TAB PO Q4HPRN, (Reported) Levothyroxine Sodium (Levothyroxine Sodium), 1 TAB PO DAILY, (Reported) Nebivolol Hcl (Bystolic), 2.5 MG PO DAILY, (Reported) Omeprazole (Gnp Omeprazole), 40 MG PO BID, (Reported) Tizanidine Hydrochloride (Zanaflex), 2 MG PO QPM, (Reported) 39 (Time taken for discharge summary 39 minutes) Discharge Statement: "Patient was advised to return to the ER or call 911 if any headaches, dizziness, shortness of breath, chest pain, abdominal pain, bleeding, fevers, or worsening of medical condition. Patient was counseled about treatment plan, medications, possible side effects, patientverbalized understanding. All questions were answered to the best of my ability. This discharge took greater then 30 minutes in planning, reviewing documentation, counseling the patient, and discussing with other team members." ASSESSMENT ASSESSMENT Hospital Course Significantly improved Assessment Septic shock with hypotension altered mental status elevated white count secondary to urinary tract infection Acute urinary tract infection: Blood cultures negative, urine cultures negative, continue Rocephin Hypotension secondary to septic shock: IV fluids Hypertension: Hold blood pressure medication as the patient now has sepsis Hypothyroidism History of recurrent urinary tract infections Moderate malnutrition SOHAIL on CKD consult by Nephrology appreciated, treated with Bumex drip History of cholecystectomy appendectomy hysterectomy colectomy for colon cancer gastric ulcer surgery Vaginal prolapse 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 Pepper appreciated echocardiogram shows RV dysfunction started on Lovenox converted to Eliquis amiodarone drip Date of Service: Feb 10, 2025 Billing Provider: SUHAIL CARILN MD Common Visit Codes: [id number] DISCH DAY >30min SUHAIL CARLIN MD Feb 10, 2025 13:24
[2025-02-10] MEDS ORDERED: AMIO200T33 PO (13:28)
[2025-02-10] MEDS ORDERED: BUME2TAB5 PO (13:28)
[2025-02-10] MEDS ORDERED: AZIT500T66 PO (13:28)
[2025-02-10] MEDS ORDERED: PANT40T PO (13:28)
[2025-02-10] MEDS ORDERED: APIX5TAB PO (13:28)
[2025-02-10] MEDS ORDERED: METO-158 PO (13:28)
[2025-02-10] MEDS ORDERED: HYDR-4902 PO (13:28)
[2025-02-10] MEDS ORDERED: MIDO10TA3 PO (13:28)
--- NOTE | 2025-02-10 15:09 | DVHPN2 ---
Progress Note Date Seen: Feb 10, 2025 Medical Necessity Reason Pt with a Central, PICC or Fol: No Subjective Patient reports: No new complaints, Feels better Review of Systems: Deferred Objective vital signs Vital Sign Date Time Temp Pulse Resp B/P (MAP) Pulse Ox O2 Delivery O2 Flow Rate FiO2 02/10/25 13:00 98.6 60 18 145/76 (99) 97 98.6 02/10/25 08:00 Nasal Cannula* 2 28 Total Intake and Output 02/09/25 02/09/25 02/10/25 15:00 23:00 07:00 Intake Total 300 ml 400 ml 400 ml Output Total 2250 ml Balance 300 ml -1850 ml 400 ml medications Current Medications Medications Dose Ordered Sig/David Route Start Time Stop Time Status Last Admin Dose Admin Pantoprazole Sodium 40 mg DAILY IV 01/31/25 10:00 02/10/25 09:25 40 MG Ondansetron HCl 4 mg Q4HP PRN IV 01/30/25 17:30 02/04/25 14:03 4 MG Acetaminophen 650 mg Q6HP PRN PO 01/30/25 17:30 Nitroglycerin 0.4 mg Q5MINP PRN SL 01/30/25 17:30 Morphine Sulfate 2 mg Q30M PRN IV 01/30/25 18:00 Acetaminophen/ Hydrocodone Bitart 1 tab Q8HPRN PRN PO 01/30/25 20:45 02/07/25 14:46 1 TAB Acetaminophen/ Hydrocodone Bitart 1 tab Q6HR PO 02/03/25 00:00 02/10/25 00:37 1 TAB Metoprolol Succinate 50 mg DAILY PO 02/03/25 11:45 02/06/25 09:28 50 MG Azithromycin 250 ml @ 125 mls/hr DAILY IV 02/05/25 10:00 02/10/25 10:39 125 MLS/HR Calcitriol 0.25 mcg DAILY PO 02/04/25 12:15 02/10/25 09:26 0.25 MCG Ceftriaxone Sodium 50 ml @ 100 mls/hr DAILY@09 IV 02/05/25 09:00 02/10/25 09:25 100 MLS/HR Amiodarone HCl 200 mg Q12HR PO 02/04/25 22:00 02/10/25 09:25 200 MG Sodium Bicarbonate 650 mg TID PO 02/05/25 14:00 02/09/25 14:14 650 MG Bumetanide 12.5 mg/Miscellaneous 50 ml @ 2 mls/hr Q24H IV 02/06/25 10:45 02/10/25 10:44 2 MLS/HR Midodrine 10 mg TID@0600,1200,1800 PO 02/06/25 18:00 02/08/25 05:17 10 MG Patient Own Medication 5 mg DAILY PO 02/11/25 10:00 UNV Examination: GENERAL:Normal, HEENT:Normal, NECK:Normal, LUNGS:Normal, CVS:Normal, ABDOMEN:Normal, MSK:Normal, SKIN:Normal, NEURO:Normal, :Normal laboratory and microbiology Laboratory Tests 02/09/25 04:43 02/08/25 05:44 02/03/25 13:29 Test 02/08/25 05:44 Range/Units Serum Glucose 86 74-106 mg/dL Microbiology Date/Time Source Procedure Growth Status 01/31/25 18:25 Voided Urine Urine Culture - Final Complete 01/30/25 14:38 Blood Blood Culture - Final NO GROWTH AFTER 5 DAYS OF INCUBATION. Complete Problem List/Assessment/Plan Problem List/Assessment/Plan Acute kidney injury superimposed Chronic Kidney Disease stage IV secondary hemodynamic mediated, feNa < 1% Acute respiratory failure, high flow oxygen Congestive heart failure exacerbation AFib with RVR Sepsis Pneumonia Metabolic acidosis Hypokalemia Secondary hyperparathyroidism recs dc bumex drip outpt SOHAIL f/u Plan discussed with: Patient Dietary Evaluation Review Recommendations by RD: Protein Supplementation Comments: 1) Initiate Ensure High Protein qd 2) Add 2g Na restriction to diet 3) Encourage optimal PO intake 4) Follow-up with cardiology and urology 5) Continue to monitor I&O, labs, and skin integrity Expected Outcomes/Goals: 1) appetite and labs to improve 2) f/u in 3-5 days MARCY BLANC MD Feb 10, 2025 15:09
[2025-02-10] MEDS ORDERED: APIXABAN 5 MG TAB PO SCH (22:00)
== END 2025-02-10 17:45 | disposition home health service (06) | DRG 871 ==
LOC: EDBD 14:07 → EDUNIT# 14:07 → ER 14:07 → UNDOADMIN 17:30 → OVERFLOW 17:30 → TELE-WESTW 23:15
PROVIDERS: ADMIT Family Medicine; ATTEND Family Medicine
DX: A41.9 Sepsis, unspecified organism (principal); J18.9 Pneumonia, unspecified organism; R65.21 Severe sepsis with septic shock; J96.00 Acute respiratory failure, unspecified whether with hypoxia or hypercapnia; N39.0 Urinary tract infection, site not specified; E44.0 Moderate protein-calorie malnutrition; N17.9 Acute kidney failure, unspecified; I13.0 Hypertensive heart and chronic kidney disease with heart failure and stage 1 through stage 4 chronic kidney disease, or unspecified chronic kidney disease; E87.20 Acidosis, unspecified; N18.4 Chronic kidney disease, stage 4 (severe); N25.81 Secondary hyperparathyroidism of renal origin; E03.9 Hypothyroidism, unspecified; I48.91 Unspecified atrial fibrillation; I95.89 Other hypotension; G89.29 Other chronic pain; E87.6 Hypokalemia; Z96.653 Presence of artificial knee joint, bilateral; B00.9 Herpesviral infection, unspecified; Z53.20 Procedure and treatment not carried out because of patient's decision for unspecified reasons; N99.3 Prolapse of vaginal vault after hysterectomy; I50.9 Heart failure, unspecified; Z20.822 Contact with and (suspected) exposure to COVID-19; Z82.3 Family history of stroke; Z85.038 Personal history of other malignant neoplasm of large intestine; Z90.49 Acquired absence of other specified parts of digestive tract; Z87.11 Personal history of peptic ulcer disease; Z87.440 Personal history of urinary (tract) infections; Z88.1 Allergy status to other antibiotic agents; Z68.26 Body mass index [BMI] 26.0-26.9, adult; Z88.8 Allergy status to other drugs, medicaments and biological substances; Z79.899 Other long term (current) drug therapy
CPT/HCPCS: 36415; 36600; 71045; 76775; 80048; 80053; 81001; 82306; 82565; 82570; 82805; 83605; 83735; 83880; 83970; 84100; 84132; 84156; 84300; 84443; 84550; 85025; 85610; 85730; 87040; 87086; 87426; 87804; 93005; 93306; 94640; 96374; 97110; 97116; 97163; 97530; 99291; G0378; J1956; J2405; J2470; J3480; J7042